=== PATIENT | male | born 1965 | race Caucasian/White ===

== ENCOUNTER → 2018-06-26 09:41 | Outpatient (CLI) | payer BC, SELFPAY ==
[2018-06-26 10:40] LABS: PSA,Total- Diagnostic 6.42 ng/mL (0.0-4.0)
== END ==
PROVIDERS: Referring Provider Nurse Practitioner Adult Health; Visit Provider Nurse Practitioner Adult Health
DX: R97.20 Elevated prostate specific antigen [PSA] (principal)
CPT/HCPCS: 36415; 84153

== ENCOUNTER → 2018-08-06 16:20 | Outpatient (CLI) | payer BC, SELFPAY ==
[2017-06-26 06:27] VITALS: BMI 23.4
--- NOTE | 2018-08-06 08:00 | PROSBIL_PTH ---
PATIENT: YAIMA CLEVELAND LOC: [facility] U#:[id number] AGE/SX: 60/M ROOM: RE08/06/[address]: Dr. Eusebio Coates MD : 1965 BED: DIS: SPEC #: [id number] RECD: 08/07/18 08:40 STATUS: KRISTIN SAMARIA #: [id number] JOSHUA: 08/06/18 08:[address]: Eusebio Coates DEPT: SURGICAL PATHOLOGY RECD BY: Abdirizak Hampton ENTERED: 08/07/18 08:41 SP TYPE: PROST BX CARMEN DR: Dr. Naya Malcolm, DO Tissues: A - PROSTATE RIGHT B - PROSTATE RIGHT C - PROSTATE RIGHT D - PROSTATE LEFT E - PROSTATE LEFT F - PROSTATE LEFT Procedures: PROSTATE BX HEADER OPERATION: Prostate biopsy PRE-OP DIAGNOSIS: Elevated PSA TISSUE SUBMITTED: A - Right apex, B - Right mid, C - Right base, D - Left apex, E - Left mid, F - Left base MICROSCOPIC DIAGNOSIS A. Right prostate, apex, core biopsy: Prostatic tissue, negative for malignancy. B. Right prostate, mid, core biopsy: Prostatic tissue, negative for malignancy. C. Right prostate, base, core biopsy: Prostatic tissue, negative for malignancy. D. Left prostate, apex, core biopsy: Prostatic tissue, negative for malignancy. E. Left prostate, mid, core biopsy: Prostatic tissue, negative for malignancy. Focal mild chronic inflammation and minimal acute inflammation. F. Left prostate, base, core biopsy: Prostatic tissue, negative for malignancy. Focal mild chronic inflammation and minimal acute inflammation. SJ:urvashi 08/08/18 MICROSCOPIC DESCRIPTION Slides are reviewed. GROSS DESCRIPTION A - Received is one container designated prostate, right apex. The specimen consists of two elongated fragments of light madrid-white soft tissue measuring 1 and 1.5 cm in length and 0.1 cm in diameter. The specimen is totally submitted in one cassette. B - Received is one container designated prostate, right mid. The specimen consists of two elongated fragments of light madrid-white soft tissue measuring 1 and 1.5 cm in length and 0.1 cm in diameter. The specimen is totally submitted in one cassette. C - Received is one container designated prostate, right base. The specimen consists of two elongated fragments of light madrid-white soft tissue each measuring 1.5 cm in length and 0.1 cm in diameter. The specimen is totally submitted in one cassette. D - Received is one container designated prostate, left apex. The specimen consists of two elongated fragments of light madrid-white soft tissue measuring 1 and 1.5 cm in length and 0.1 cm in diameter. The specimen is totally submitted in one cassette. E - Received is one container designated prostate, left mid. The specimen consists of two elongated fragments of light madrid-white soft tissue measuring 1 and 1.5 cm in length and 0.1 cm in diameter. The specimen is totally submitted in one cassette. F - Received is one container designated prostate, left base. The specimen consists of two elongated fragments of light madrid-white soft tissue each measuring 1.5 cm in length and 0.1 cm in diameter. The specimen is totally submitted in one cassette. / SJ:rg 08/07/18 TC:3 CPT: 42073 x6
== END ==
PROVIDERS: Referring Provider Urology; Visit Provider Urology
DX: R97.20 Elevated prostate specific antigen [PSA] (principal)
CPT/HCPCS: 88305; G0416

== ENCOUNTER → 2020-05-26 | Outpatient (CLI) | payer BC, SELFPAY ==
[2017-06-26 06:27] VITALS: BMI 23.4
[2020-05-26 10:43] LABS: ALB/GLOB Ratio 1.1 RATIO (0.9-2.4); AST(SGOT) 25 U/L (15-37); Alanine Aminotransfer ALT/SGPT 30 U/L (16-61); Albumin, Serum 3.9 g/dL (3.2-5.0); Alkaline Phosphatase 94 U/L (45-117); Anion Gap 7 (5-15); BUN 14 mg/dL (7-18); Calcium,Total 8.9 mg/dL (8.5-10.1); Chloride 106 mmol/L (98-107); Cholesterol 218 mg/dL (200); Creatinine, Serum 1.08 mg/dL (0.70-1.30); EST Glomerular Filtration Rate 75 mL/min (>60); Est Glom Filt Rate - Afr Amer 91 mL/min (>60); Globulin 3.4 g/dL (2.2-4.2); Glucose 107 mg/dL (74-106); High Density Lipoprotein 57 mg/dL; Potassium 3.8 mmol/L (3.5-5.1); Protein, Total 7.3 g/dL (6.4-8.2); Sodium Level 141 mmol/L (136-145); Triglycerides 132 mg/dL; Very Low Density Lipoprotein 26 mg/dL (5-40)
[2020-05-26 10:58] LABS: Hematocrit 46.2 % (40-54); Hemoglobin 15.6 g/dL (13.0-16.5); Mean Corp Hgb Conc 33.8 g/dL (32-36); Mean Corpuscular Hgb 29.6 pg (27.0-32.0); Mean Corpuscular Volume 87.7 fL (80-94); Mean Platelet Vol. 11.6 fl (6.2-12.0); Platelet Count 266 K/mm3 (150-450); RBC Distribution Width CV 12.3 % (11.6-14.6); RBC Distribution Width SD 39.3 fl (35.1-43.9); Red Blood Count 5.27 M/mm3 (4.6-6.2); White Blood Count 5.9 K/mm3 (4.4-11.0)
== END | disposition home or self-care (01) ==
LOC: LABSPEC 10:15
PROVIDERS: Referring Provider Nurse Practitioner Family; Visit Provider Nurse Practitioner Family
DX: Z13.0 Encounter for screening for diseases of the blood and blood-forming organs and certain disorders involving the immune mechanism (principal); Z12.5 Encounter for screening for malignant neoplasm of prostate; Z13.6 Encounter for screening for cardiovascular disorders; Z13.1 Encounter for screening for diabetes mellitus
CPT/HCPCS: 80053; 80061; 84153; 85027; G0103

== ENCOUNTER → 2020-06-22 | Outpatient (CLI) | payer BC, SELFPAY ==
[2017-06-26 06:27] VITALS: BMI 23.4
== END | disposition home or self-care (01) ==
LOC: LAB 16:14
PROVIDERS: PCP Nurse Practitioner Family; Referring Provider Urology; Visit Provider Urology
DX: R97.20 Elevated prostate specific antigen [PSA] (principal)
CPT/HCPCS: 36415; 84153

== ENCOUNTER → 2020-06-29 | Outpatient (CLI) | payer BC, SELFPAY ==
--- NOTE | 2020-06-29 16:10 | MRI_ITS ---
STUDY: MR PELVIS WITH AND WITHOUT CONTRAST (PROSTATE) REASON FOR EXAM: Male, 55 years old. Elevated PSA TECHNIQUE: Standardized multiparametric prostate MRI with T1, T2, DWI/ADC sequences were obtained in 3 orthogonal planes, and dynamic contrast enhancement sequences. 15 mL ml of dotarem contrast material was administered intravenously for the contrast portion of the examination. COMPARISON: None. FINDINGS: The prostate volume measures 81 mm3. The contours of the prostate gland are smooth. There is not mass effect on the bladder base. The transition zone is heterogenous. PI-RADS DWI score 1 - No abnormality (normal) on ADC or high b-value DWI. PI-RADS T2W score 2 - A mostly encapsulated nodule OR a homogeneous circumscribed nodule without encapsulation (atypical nodule) or a homogeneous mildly hypointense area between nodules.. Contrast enhancement no early or contemporaneous enhancement; or diffuse multifocal enhancement NOT corresponding to a focal finding on T2W and/or DWI or focal nhancement responding to a lesion demonstrating features of BPH onT2WI (including features of extruded BPH in the PZ). The peripheral zone is homogenous. PI-RADS DWI score 1 - No abnormality (normal) on ADC or high b-value DWI. PI-RADS T2W score 2 - Linear, wedge-shaped, or diffuse mild hypointensity, usually with indistinct margin. Contrast enhancement no early or contemporaneous enhancement; or diffuse multifocal enhancement NOT corresponding to a focal finding on T2W and/or DWI or focal nhancement responding to a lesion demonstrating features of BPH onT2WI (including features of extruded BPH in the PZ). The seminal vesicles demonstrate normal margins and T2 signal pattern. No mass lesion or invasion depicted. The rectoprostatic angles are normal. Urinary bladder is normal without wall thickening. The vascular structures of the are normal. The visualized hollow viscus structures are normal. No bone marrow edema or mass lesion depicted. MRI/Pelvis W/WO Contrast IMPRESSION: 1. PIRADS v2.1 2019 -- 2 - Low (clinically significant cancer is unlikely). Electronically Signed: Marcel (Macedo) Glen, MD at 11:24 EDT , Service support ,
== END | disposition home or self-care (01) ==
LOC: MRI 16:04
PROVIDERS: PCP Nurse Practitioner Family; Referring Provider Urology; Visit Provider Urology
DX: R97.20 Elevated prostate specific antigen [PSA] (principal); Z80.42 Family history of malignant neoplasm of prostate
CPT/HCPCS: 72197; A9575

== ENCOUNTER → 2020-12-12 09:13 | Outpatient (CLI) | payer OTHER, SELFPAY ==
[2017-06-26 06:27] VITALS: BMI 23.4
== END ==
PROVIDERS: PCP Nurse Practitioner Family; Referring Provider Urology; Visit Provider Urology
DX: R97.20 Elevated prostate specific antigen [PSA] (principal)
CPT/HCPCS: 36415; 84153

== ENCOUNTER → 2021-01-14 | Outpatient (CLI) | payer OTHER, SELFPAY ==
--- NOTE | 2021-01-14 | IMM_PTH ---
PATIENT: YAIMA CLEVELAND LOC: [facility] U#:[id number] AGE/SX: 55/M ROOM: RE01/14/[address]: Dr. Eusebio Coates MD : 1965 BED: DIS: 01/14/2021 SPEC #: [id number] RECD: 01/15/21 14:03 STATUS: KRISTIN REQ #: [id number] JOSHUA: 01/14/21 00:[address]: Eusebio Coates DEPT: IMMUNOHISTOCHEMISTRY RECD BY: Ping Santamaria ENTERED: 01/15/21 14:04 SP TYPE: IMMUNO OTHR DR: Alexa Jones, PULP SCREEN OPERATOR-C Tissues: A - PROSTATE RIGHT Procedures: CD31 (add) CK8 (add) KI-67 (add) P53 (add) PSA (add) Vimentin (add) FACTOR VIII (add) Pankeratin (initial) PHYSICIAN & INSTITUTION [place] [id number] SPECIMEN INFORMATION: Tissue Source: A - Right prostate, apex, core biopsy Clinical Info: Elevated PSA Specimen Number: [id number] CPT code: 84211, 51602 x7 METHODOLOGY: Deparaffinized sections of prefer/formalin-fixed tissue or PAP/DQ stained slides are incubated with monoclonal/polyclonal antibodies/oligonucleotide probes. Localization is made via biotin free immunoperoxidase method. Appropriate controls are performed and reacted as expected. Results on target cell population are indicated in the following table: RESULTS: ANTIBODY / CLONE RESULT Block A AE1-3 (AE1/AE3/PCK26) negative CK8 (21cjboN96) negative PSA (ER-PR8) negative Vimentin (V9) positive P53 (DO-7) negative Ki-67 (30-9) positive, low CD31 (TAYLOR/70A) negative Factor VIII (R Ag) negative These tests were developed and their performance characteristics determined by [facility]. They may not have been cleared or approved by the U.S. Food and Drug Administration. The FDA has determined that such clearance or approval is not necessary. The above immunohistochemical/dualISH markers are ordered and reviewed by the Pathologist. INTERPRETATION: A. Right prostate, apex, core biopsy: Negative for malignancy. Acute and chronic inflammation and granulation tissue reaction. SJ:urvashi 01/15/2021
--- NOTE | 2021-01-14 08:00 | PROSBIL_PTH ---
PATIENT: YAIMA CLEVELAND LOC: [facility] U#:[id number] AGE/SX: 55/M ROOM: RE01/14/[address]: Dr. Eusebio Coates MD : 1965 BED: DIS: 01/14/2021 SPEC #: [id number] RECD: 01/14/21 11:29 STATUS: KRISTIN REQ #: [id number] JOSHUA: 01/14/21 08:[address]: Eusebio Coates DEPT: SURGICAL PATHOLOGY RECD BY: Yadira Queen ENTERED: 01/14/21 11:29 SP TYPE: PROST BX CARMEN DR: Alexa Jones, STACI-Mansi Tissues: A - PROSTATE RIGHT B - PROSTATE RIGHT C - PROSTATE RIGHT D - PROSTATE LEFT E - PROSTATE LEFT F - PROSTATE LEFT Procedures: PROSTATE BX HEADER OPERATION: Prostate biopsy PRE-OP DIAGNOSIS: R97.20 TISSUE SUBMITTED: A - Right apex, B - Right mid, C - Right base, D - Left apex, E - Left mid, F - Left base MICROSCOPIC DIAGNOSIS A. Right prostate, apex, core biopsy: Prostatic tissue, negative for malignancy. Focal acute and chronic inflammation and granulation tissue reaction. See comment. B. Right prostate, mid, core biopsy: Prostatic tissue, negative for malignancy. Focal mild chronic inflammation. C. Right prostate, base, core biopsy: Prostatic tissue, negative for malignancy. Focal mild chronic inflammation. D. Left prostate, apex, core biopsy: Prostatic tissue, negative for malignancy. E. Left prostate, mid, core biopsy: Prostatic tissue, negative for malignancy. F. Left prostate, base, core biopsy: Prostatic tissue, negative for malignancy. SJ:urvashi 01/15/2021 COMMENT A. Immunohistochemistry ([id number]) supports the above diagnosis. Please make reference to previous specimen ([id number]) right prostate, apex, mid and base and left prostate, apex, mid and base core biopsies with diagnosis of ?prostatic tissue, negative for malignancy.? MICROSCOPIC DESCRIPTION Slides are reviewed. GROSS DESCRIPTION A - Received is one container designated prostate, right apex. The specimen consists of two elongated fragments of light madrid-white soft tissue measuring 1 and 1.8 cm in length and 0.1 cm in diameter. The specimen is totally submitted in one cassette. B - Received is one container designated prostate, right mid. The specimen consists of two elongated fragments of light madrid-white soft tissue each measuring 1.5 cm in length and 0.1 cm in diameter. The specimen is totally submitted in one cassette. C - Received is one container designated prostate, right base. The specimen consists of two elongated fragments of light madrid-white soft tissue each measuring 1.5 cm in length and 0.1 cm in diameter. The specimen is totally submitted in one cassette. D - Received is one container designated prostate, left apex. The specimen consists of two elongated fragments of light madrid-white soft tissue each measuring 1.5 cm in length and 0.1 cm in diameter. The specimen is totally submitted in one cassette. E - Received is one container designated prostate, left mid. The specimen consists of two elongated fragments of light madrid-white soft tissue measuring 1 and 1.5 cm in length and 0.1 cm in diameter. The specimen is totally submitted in one cassette. F - Received is one container designated prostate, left base. The specimen consists of two elongated fragments of light madrid-white soft tissue measuring 1.3 and 2 cm in length and 0.1 cm in diameter. The specimen is totally submitted in one cassette. / SJ:rg 01/14/21 TC:5 CPT: 75733 x6
== END | disposition home or self-care (01) ==
LOC: LABSPEC 11:07
PROVIDERS: PCP Nurse Practitioner Family; Referring Provider Urology; Visit Provider Urology
DX: R97.20 Elevated prostate specific antigen [PSA] (principal)
CPT/HCPCS: 88305; 88341; 88342; G0416

== ENCOUNTER 2021-11-19 15:56 | Outpatient (CLI) | payer BC, SELFPAY | END 2021-11-19 23:59 | disposition home or self-care (01) | LOC: LAB 15:58 | PROVIDERS: PCP Nurse Practitioner Family; Referring Provider Urology; Visit Provider Urology | DX: R97.20 Elevated prostate specific antigen [PSA] (principal) | CPT/HCPCS: 36415; 84153 ==

== ENCOUNTER 2023-08-31 23:57 | Emergency (ER) | payer BC, SELFPAY ==
[2023-08-31 23:58] VITALS: PULSE 101; RESP 18; TEMP 36.2; O2SAT 94; BMI 28.0
[2023-09-01 00:01] VITALS: BP 197/102
--- NOTE | 2023-09-01 02:00 | EX.ED.GUMALE ---
HPI History of Present Illness Chief Complaint: Complaint Narrative Narrative: 58-year-old male with history of prostate issues presents with inability to urinate. He states this started this evening. About 630 is when he stopped and able to void. He has a history of this in the past. He states he had this a few years ago and [facility]. Patient used to be seen by urology here at [facility] but now sees somebody from the [facility] He is on Flomax. [facility] History Anxiety Depression Enlarged prostate HTN (hypertension) Home Medications lisinopril 5 mg tablet (Zestril) 5 mg PO DAILY 01/18/17 [History Last Taken 06/26/17 05:00] escitalopram oxalate 20 mg tablet 20 mg PO DAILY 09/01/23 [History Last Taken Unknown] tamsulosin 0.4 mg capsule 0.4 mg PO Q24H 09/01/23 [History Last Taken Unknown] Allergy/AdvReac Type Severity Reaction Status Date / Time codeine AdvReac Nausea Verified 08/31/23 23:57 Social History Smoking Status: Current every day smoker tobacco type: smokeless tobacco ROS ROS ED Constitutional Constitutional ED: Denies chills, fever(s) or sweats Eyes Eyes: Denies blurry vision or change in vision ENT ENT ED: Denies ear pain or sore throat Cardiovascular Cardiovascular: Denies chest pain, palpitations or racing heartbeat Respiratory/Chest Respiratory/Chest: Denies cough, dyspnea or sputum Gastrointestinal Gastrointestinal: Reports abdominal pain; Denies constipation, diarrhea, nausea or vomiting Genitourinary Genitourinary ED: Denies dysuria, hematuria or urinary frequency Musculoskeletal Musculoskeletal: Denies arthralgias, myalgias or neck pain Integumentary Denies abscess, Abrasions or rash Neurologic Neurologic: Denies headache(s), paresthesias or weakness Psychiatric Psychiatric: Denies anxiety, depression, suicidal ideation or suicidal thoughts Endocrine Endocrinology: Denies polydipsia or polyuria EXAM Physical Exam Const Vital Signs: 08/31/23 23:58 09/01/23 00:01 Temperature 97.2 F L Temperature Source Temporal Pulse Rate 101 H Respiratory Rate 18 Blood Pressure 197/102 H Blood Pressure Mean 133 Pulse Ox 94 Positive well nourished General Appearance ED: NAD; Negative for pallor HEENT Reports moist mucous membranes normocephalic and atraumatic Eyes PERRL and EOMs intact bilaterally Resp normal respiratory effort and clear to auscultation bilaterally Cardio regular rate and regular rhythm GI GI Narrative: Suprapubic pressure no CVA tenderness Extremity normal to inspection Neuro oriented x3 and CN's II-XII intact bilaterally Sensorium / Orientation: alert Motor Exam: strength 5/5 throughout Psych mental status grossly normal Skin General Skin Exam: Negative for jaundice or pallor MDM MDM MDM Narrative Medical decision making narrative: Patient presenting with urinary tension. Centeno catheter was placed. Patient on 1000 cc of urine come out. Patient feels improved. Urinalysis will be ordered. Patient given instruction on leg bag. UA negative for infection. There is some occult blood. This is likely from putting in the Centeno catheter. Patient feels better. Discharged home with leg bag. Follow-up with urology at [facility] Impression: 1. Acute urinary retention Lab Data Attestation: I reviewed the patient's lab results. Labs: Laboratory Results - last 24 hr 09/01/23 02:05 Urine Color Yellow Urine Clarity Clear Urine pH 6.0 Ur Specific [place] 1.015 Urine Protein 100 H Urine Glucose (UA) Normal Urine Ketones 15 H Urine Occult Blood 250 H Urine Nitrite Negative Urine Bilirubin Negative Urine Urobilinogen 1 H Ur Leukocyte Esterase 25 H Urine RBC > 100 SEEN Urine WBC 0-5 SEEN Ur Squamous Epith Cells 0-5 SEEN Urine Bacteria 0 SEEN Urine Mucus 0 SEEN Discharge Plan Triage Chief Complaint: Complaint ED Provider: Riky Navarro Dx/Rx/DC Orders Instructions: ED Centeno Catheter, Care, ED Urinary Retention, Male Prescriptions: No Action lisinopril [Zestril] 5 MG tablet 5 mg PO DAILY escitalopram oxalate 20 mg tablet 20 mg PO DAILY Patient Comments: TAKE 1 TABLET BY MOUTHCONCE DAILY tamsulosin 0.4 mg capsule 0.4 mg PO Q24H Patient Comments: Take 1 capsule by mouthMonce daily. Primary Care Provider: Alexa Jones NP Referrals: Alexa Jones NP, AMBULATORY CARE NURSE-C [Primary Care Provider] - Disposition Disposition: Home, Self Care
[2023-09-01 02:24] LABS: Bacteria 0 SEEN /hpf (None Seen); Mucous, Urine 0 SEEN /hpf (<or=2+)
[2023-09-01 02:27] LABS: Color, Urine Yellow (Yellow); Glucose, Dipstick Normal (Normal); Ketone-Dipstick 15 mg/dl (Negative); Leukocyte Esterase-Dipstick 25 /ul (Negative); Nitrite-Dipstick Negative (Negative); Occult Blood-Urine 250 /ul (Negative); Protein-Dipstick 100 mg/dl (Negative); Specific Gravity, Urine 1.015 (1.002-1.030); Urine Bilirubin Dipstick Negative (Negative); Urine Clarity Clear (Clear); Urine Urobilinogen 1 mg/dl (Normal)
--- OUTSIDE RECORDS SUMMARY | 2023-09-01 02:32 | XMS RPT_ITS | CCD ---
Author Name Unknown Address [address] [place] [address] Organization [facility] Care Team Providers Care Multiple Wire Sawyer Name Role Phone Sabrina WHITE, Rudy Lanza Unavailable [phone] Miguel Angel VELÁSQUEZ, Kenna Jha Unavailable [phone] No, Physician Primary Care Provider Unavailabl JUAN MANUEL Bush Attending Unavailable NO, PHYSICIAN Primary Care Unavailable STORM SALES MANAGER [employer]UFACTURING ENGINEER, BARD Primary Care Physician Storm PEREZ, [place] Primary Care Provider Eusebio Coates Unavailable LORBOUCHRA SALES MANAGER [employer]UFACTURING ENGINEER, BARD Primary Care Physician Storm PEREZ, [place] Primary Care Provider Eusebio Coates Unavailable Storm PEREZ, [place] Primary Care Provider Eusebio Coates MD Unavailable Eusebio Coates MD Unavailable [phone] STORM ALEXA Primary Care Unavailable WEIGHT, CHRISTOPHER Referring Unavailable LORSON, BARD Primary Care Unavailable WEIGHT, CHRISTOPHER Referring Unavailable LORSON, BARD Primary Care Unavailable WEIGHT, CHRISTOPHER Attending Unavailable LORSON, BARD Primary Care Unavailable WEIGHT, CHRISTOPHER Referring Unavailable LORSON, BARD Primary Care Unavailable NIKIA MOREAU Attending Unavailable WEIGHT, CHRISTOPHER Referring Unavailable Allergies Allergy Classification Reported Allergen(s) Allergy Type Date of Onset Reaction(s) Facility Opioid Agonists (2 sources) Codeine; Translations: [CODEINE] Drug Allergy 1 Other (See Comments) [facility] (2 sources) codeine Drug Allergy 7 nausea/vomiting [facility] Work Phone: (15 sources) Codeine; Translations: [codeine] Drug Allergy 4 Vomiting [facility] Medications Current Medications Medication Drug Class(es) Dates Sig (Normalized) Sig (Original) busPIRone hydrochloride 10 mg oral tablet (11 sources) Start: 05-12-2021 End: 08-05-2022 busPIRone (BUSPAR) 10 mg tablet Take 10 mg by mouth. 0 05/12/2021 08/05/2022 Active Completed/Discontinued Medications Medication Drug Class(es) Dates Sig (Normalized) Sig (Original) albuterol 0.83 mg/ml inhalation solution (2 sources) beta2-Adrenergic Agonist Start: 09-14-2021 End: 10-14-2021 take 1 dose by inhalation every six hours as needed albuterol 2.5 mg/3 mL (0.083%) inhalation solution Dose : 2.5 mg = 3 mL, Inhalation, q6h, PRN as needed for wheezing, # 50 EA, 0 Refill(s), Dosing Weight Start Date: 09/14/21 Stop Date: 10/14/21 Status: Ordered Problems Active Problems Problem Classification Problem Date Documented Date Episodic/Chronic Anxiety disorders (4 sources) Anxiety; Translations: [Generalized anxiety disorder] 05-15-2019 Chronic Disorders of lipid metabolism (2 sources) Mixed hyperlipidemia 05-15-2019 Chronic Essential hypertension (2 sources) Essential hypertension 06-03-2020 Chronic Genitourinary symptoms and ill-defined conditions (1 source) Retention of urine; Translations: [Retention of urine, unspecified] Episodic Hyperplasia of prostate (3 sources) Benign prostatic hyperplasia; Translations: [Benign prostatic hyperplasia without lower urinary tract symptoms] Chronic Malaise and fatigue (1 source) Fatigue 01-12-2022 Episodic Other male genital disorders (2 sources) Impotence 05-15-2019 Chronic Other screening for suspected conditions (not mental disorders or infectious disease) (20 sources) Raised prostate specific antigen; Translations: [Elevated prostate specific antigen [PSA]] Onset: 02-28-2014 05-15-2019 Episodic Residual codes; unclassified (2 sources) Sleep apnea 05-15-2019 Chronic Residual codes; unclassified (1 source) Past history of procedure; Translations: [Other specified postprocedural states] Episodic Residual codes; unclassified (2 sources) Chews tobacco 12-31-2020 Episodic Unclassified (3 sources) Patient encounter status 05-06-2021 Past or Other Problems Problem Classification Problem Date Documented Da te Episodic/Chronic Other and unspecified benign neoplasm (4 sources) Polyp of colon; Translations: [History of polyp of colon] Onset: 06-06-2017 07-04-2017 Episodic Other and unspecified benign neoplasm (1 source) History of polyp of colon; Translations: [Personal history of colonic polyps] Onset: 06-06-2017 06-06-2017 Episodic Results Test Name Value Interpretation Reference Range Facil ity Vital Signs Date Time Vital Sign Value Performing Clinician Brandon martinez 12-14-2021 08:25-0400 Body weight 83.6 kg Christopher Weight M D Work Phone: [facility] 12-14-2021 08:25-0400 Diastolic blood pressure 82 mm[Hg] Jarocho Fan MD Work Phone: [facility] 12-14-2021 08:25-0400 Heart rate 56 /min Christopher Weight M D Work Phone: [facility] 12-14-2021 08:25-0400 Systolic blood pressure 142 mm[Hg] Jarocho Fan MD Work Phone: [facility] 01-16-2021 22:48-0400 Diastolic blood pressure 79 mm[Hg] Juan Manuel Jacobs MD Work Phone: [facility] 01-16-2021 22:48-0400 Heart rate 77 /min Juan Manuel Jacobs MD Work Phone: [facility] 01-16-2021 22:48-0400 Respiratory rate 16 /min Juan Manuel Jacobs MD Work Phone: [facility] 01-16-2021 22:48-0400 SaO2% (BldA) [Mass fraction] 96 % Juan Manuel Jacobs MD Work Phone: [facility] 01-16-2021 22:48-0400 Systolic blood pressure 132 mm[Hg] Juan Manuel Jacobs MD Work Phone: [facility] 01-16-2021 20:38-0400 Body height 175.3 cm Juan Manuel Jacobs MD Work Phone: [facility] 01-16-2021 20:38-0400 Body mass index (BMI) [Ratio] 25.28 kg/m2 Juan Manuel Jacobs MD Work Phone: [facility] 01-16-2021 20:38-0400 Body temperature 98.4 [degF] Juan Manuel Jacobs MD Work Phone: [facility] 01-16-2021 20:38-0400 Body weight 77.66 kg Juan Manuel Jacobs MD Work Phone: [facility] Encounters Encounter Date Encounter Type Care Provider Facility Start: 05-16-2023 End: 05-17-2023 ambulatory [facility] Facility:[facility] Start: 04-25-2023 End: 04-25-2023 [facility] Facility:[facility] Start: 04-25-2023 End: 04-25-2023 ambulatory Jarocho Fan MD Work Phone: Urology Procedures Date Procedure Procedure Detail Performing Clinician Start: 04-07-2022 Urnls dip stick/tabl et reagent auto microscopy Bulk Order Provider Start: 03-17-2022 transrct prstate vol brachytx plnning spx Jarocho Fan MD Work Phone: Start: 03-17-2022 Urnls dip stick/tabl et rgnt auto w/o microscopy Jarocho Fan MD Work Phone: Start: 12-14-2021 Urnls dip stick/tabl et rgnt auto w/o microscopy Bulk Order Provider Start: 07-12-2021 [facility] Calvin Fan MD Work Phone: Start: 01-16-2021 Urnls dip stick/tabl et reagent auto microscopy Randal Barker PA-C Work Phone: Start: 01-16-2021 Basic metabolic pane l calcium total Randal Barker PA-C Work Phone: Start: 01-16-2021 ORTIZ TOP Juan Manuel Jacobs MD Work Phone: Start: 01-16-2021 LIGHT BLUE TOP Juan Manuel Jacobs MD Work Phone: Start: 01-16-2021 LIGHT GREEN TOP Juan Manuel Jacobs MD Work Phone: Start: 01-16-2021 PINK TOP Juan Manuel Jacobs MD Work Phone: Start: 01-16-2021 RAINBOW DRAW Juan Manuel Jacobs MD Work Phone: Start: 01-25-2017 Inguinal hernia (disorder) ALEXA INMAN SALES MANAGER [employer]URING ENGINEER Plan of Treatment Date Care Activity Detail Author Start: 07-12-2031 Colonoscopy COLONOSCOPY [facility] Start: 07-12-2031 COLORECTAL CANCER SCREENING COLORECTAL CANCER SCREENING [facility] Start: 05-16-2028 Prostate Cancer Screening Discussion Prostate Cancer Screening Discussion [facility] Start: 01-24-2028 PROSTATE CANCER SCREENING DISCUSSION PROSTATE CANCER SCREENING DISCUSSION [facility] Start: 10-07-2027 PROSTATE CANCER SCREENING DISCUSSION PROSTATE CANCER SCREENING DISCUSSION [facility] Start: 05-05-2023 Influenza vaccination [facility] Start: 2023 End: 04-09-2023 Prostate specific Ag [Mass/volume] in Serum or Plasma PSA/PROSTSPECAG DIAG Lab Routine Elevated prostate specific antigen (PSA) Expected: 2023, Expires: 04/09/2023 [facility] Work Phone: Immunizations Immunization Date Immunization Notes Care Provider Fa [facility] 05-05-2017 influenza virus vaccine, unspecified formulation ALEXA INMAN SALES MANAGER [employer]UFACTURING ENGINEER [facility] 06-04-2016 influenza virus vaccine, unspecified formulation ALEXA INMAN SALES MANAGER [employer]UFACTURING ENGINEER [facility] 05-05-2015 influenza virus vaccine, unspecified formulation ALEXA INMAN SALES MANAGER [employer]UFA[employer]URING ENGINEER [facility] Payers Date Payer Category Payer Unknown RAYMOND SEQUEIRA SS PPO [id number] 2021-Present [phone] [address] [place] [address] PPO [id number] 2021 Unknown RAYMOND RIOS ACCE SS PPO [id number] 2021-Present [phone] [address] [place] [address] PPO [id number] 2021 Unknown [id number] 2020 Unknown [id number] 1965 Unknown [id number] Unknown [facility] [id number] Effective for all dates [id number] Social History Date Type Detail Facility Start: 01-16-2021 End: 06-29-2021 Tobacco smoking status NHIS Never smoker [facility] Start: 01-16-2021 End: 06-29-2021 Tobacco use and exposure Current user [facility] History of tobacco use Chews Tobacco [facility] Start: 01-16-2021 End: 07-12-2021 Alcohol intake Current drinker of alcohol (finding) [facility] Start: 01-16-2021 Alcohol Comment occasionally [facility] Start: 1965 Sex Assigned At Not on file [facility] Start: 12-04-2021 End: 04-07-2022 Exposure to SARS-CoV-2 (event) Not sure [facility] Start: 06-03-2020 Smokeless tobacco user within last 30 days [facility] Sex Assigned At Male [facility] History of tobacco use Snuff User [facility] Start: 06-29-2021 History SDOH Alcohol Comment 8-10 weekly [facility] Start: 07-12-2021 End: 01-23-2023 History of Social function [facility] Start: 07-12-2021 End: 01-23-2023 Area Deprivation Index [facility] Clinical Notes 01-16-2021 to 04-25-2023 Jarocho Fan MD - 04/25/2023 2:30 PM EDTTelephone Encounter - Lili Best - 04/07/2023 8:35 AM EDTTelephone Encounter - Kaelyn Bell RN - 01/12/2023 7:28 AM EDT Note Date & Type Note Facility 04-25-2023 Note HNO ID: [id number] Author: Jarocho Fan MD Service: ? Author Type: Physician Type: Progress Notes Filed: 05/17/2023 1:44 PM Note Text: VIRTUAL VISIT FOLLOW UP PATIENT: Nancy Beltran [id number] 04/25/2023 This is a virtual visit using IBTgames video visit. It required patient-provider interaction for the medical decision making as documented below. I have communicated my name and active licensure. The patient's identity and physical location were verified at the time of this visit. Either the patient or their legal new accounts representative has been informed of the risks and benefits of -- and alternatives to -- treatment through a remote evaluation and consents to proceed with the evaluation remotely. This clinic note was copied and updated from previous note from 01/31/23 Chief Complaint: Follow up for elevated PSA History of Present Illness: Nancy Beltran is a very pleasant 58 year old male who presents with a history of elevated PSA. He has undergone 3 prior biopsies, all of which were negative most recent biopsy 03/17/2022. Most recent MRI prostate with PI-RADS 2 lesion and 93cc prostate gland on 01/25/2022. PSA 17.95 PSA 10/07/2022 15.24 Interval Hx: The patient is presenting for follow up. Did not get updated PSA. Denies new or worsening urinary symptoms. Physical Exam (via video enabled technology) Patient is a 58 year old male Constitutional: Vitals: There were no vitals taken for this visit. General Appearance Adult: Alert, no acute distress, oriented Lungs/Repiratory: no respiratory distress, or pursed lip breathing Psych: affect and mood normal Abdomen: Estimated body mass index is 26.44 kg/m? as calculated from the following: Height as of 01/06/17: 177.8 cm (5' 10 ). Weight as of 12/14/21: 83.6 kg (184 lb 4.8 oz). Labs and Pathology: Surgical Pathology 03/17/2022 FINAL DIAGNOSIS A. Prostate, left anterior medial, core biopsy: - Benign prostatic tissue. B. Prostate, left anterior lateral, core biopsy: - Benign prostatic tissue. C. Prostate, left posterior medial, core biopsy: - Benign prostatic tissue. D. Prostate, left posterior lateral, core biopsy: - Benign prostatic tissue. E. Prostate, right anterior medial, core biopsy: - Benign prostatic tissue. F. Prostate, right anterior lateral, core biopsy: - Benign prostatic tissue. G. Prostate, right posterior medial, core biopsy: - Benign prostatic tissue. H. Prostate, right posterior lateral, core biopsy: - Benign prostatic tissue. I personally reviewed all applicable laboratory and pathology data reviewed with patient Significant for elevated PSA PSA (ng/mL) Date Value 05/16/2023 14.32 01/23/2023 17.95 10/07/2022 15.24 Imaging: MRI prostate 01/25/2022 IMPRESSION: No suspicious lesion for clinically significant prostate cancer (PI-RADS I personally viewed all applicable imaging and interpreted them and went over the results with the patient. Assessment and Plan: 1.This is a 58 year old male with elevated PSA with elevated IsoPSA. Has had 3 negative biopsies. Most recent PSA 15.24 down from 19 in January. Has not gotten an updated PSA. Plan: Will get PSA soon, if stable follow up in 6 months with PSA This visit was conducted as a video visit and lasted 15 minutes. Nikia Moreau APRN.ADVANCED MANUFACTURING ENGINEER I agree with the Chief Complaint, ROS, and Past Histories independently gathered by the clinical support engineer including scribe and or medical student and or LEONARDO and or resident or fellow and the remaining scribed note accurately describes my personal service to the patient. Jarocho Fan MD, MS [facility] [place] [facility] 04-25-2023 History of Presen t illness Narrative VIRTUAL VISIT FOLLOW UP PATIENT: Nancy Beltran [id number] 04/25/2023 This is a virtual visit using IBTgames video visit. It required patient-provider interaction for the medical decision making as documented below. I have communicated my name and active licensure. The patient's identity and physical location were verified at the time of this visit. Either the patient or their legal new accounts representative has been informed of the risks and benefits of -- and alternatives to -- treatment through a remote evaluation and consents to proceed with the evaluation remotely. This clinic note was copied and updated from previous note from 01/31/23 Chief Complaint: Follow up for elevated PSA History of Present Illness: Nancy Beltran is a very pleasant 58 year old male who presents with a history of elevated PSA. He has undergone 3 prior biopsies, all of which were negative most recent biopsy 03/17/2022. Most recent MRI prostate with PI-RADS 2 lesion and 93cc prostate gland on 01/25/2022. PSA 17.95 PSA 10/07/2022 15.24 Interval Hx: The patient is presenting for follow up. Did not get updated PSA. Denies new or worsening urinary symptoms. Physical Exam (via video enabled technology) Patient is a 58 year old male Constitutional: Vitals: There were no vitals taken for this visit. General Appearance Adult: Alert, no acute distress, oriented Lungs/Repiratory: no respiratory distress, or pursed lip breathing Psych: affect and mood normal Abdomen: Estimated body mass index is 26.44 kg/m as calculated from the following: Height as of 01/06/17: 177.8 cm (5' 10 ). Weight as of 12/14/21: 83.6 kg (184 lb 4.8 oz). Labs and Pathology: Surgical Pathology 03/17/2022 FINAL DIAGNOSIS A. Prostate, left anterior medial, core biopsy: - Benign prostatic tissue. B. Prostate, left anterior lateral, core biopsy: - Benign prostatic tissue. C. Prostate, left posterior medial, core biopsy: - Benign prostatic tissue. D. Prostate, left posterior lateral, core biopsy: - Benign prostatic tissue. E. Prostate, right anterior medial, core biopsy: - Benign prostatic tissue. F. Prostate, right anterior lateral, core biopsy: - Benign prostatic tissue. G. Prostate, right posterior medial, core biopsy: - Benign prostatic tissue. H. Prostate, right posterior lateral, core biopsy: - Benign prostatic tissue. I personally reviewed all applicable laboratory and pathology data reviewed with patient Significant for elevated PSA PSA (ng/mL) Date Value 05/16/2023 14.32 01/23/2023 17.95 10/07/2022 15.24 Imaging: MRI prostate 01/25/2022 IMPRESSION: No suspicious lesion for clinically significant prostate cancer (PI-RADS I personally viewed all applicable imaging and interpreted them and went over the results with the patient. Assessment and Plan: 1.This is a 58 year old male with elevated PSA with elevated IsoPSA. Has had 3 negative biopsies. Most recent PSA 15.24 down from 19 in January. Has not gotten an updated PSA. Plan: Will get PSA soon, if stable follow up in 6 months with PSA This visit was conducted as a video visit and lasted 15 minutes. Nikia Moreau APRN.ADVANCED MANUFACTURING ENGINEER I agree with the Chief Complaint, ROS, and Past Histories independently gathered by the clinical support engineer including scribe and or medical student and or LEONARDO and or resident or fellow and the remaining scribed note accurately describes my personal service to the patient. Jarocho Fan MD, MS [facility] [place] [facility] documented in this encounter [facility] 04-07-2023 Miscellaneous Notes Requested Prescriptions Pending Prescriptions Disp Refills tamsulosin (FLOMAX) 0.4 mg Sig: Take by mouth once daily. documented in this encounter [facility] 01-12-2023 Miscellaneous Notes Received a request from [facility] for Nancy's last colonoscopy to be faxed to their office. Faxed 2020 colonoscopy. Fax confirmation sheet received. Kaelyn Bell RN documented in this encounter [facility] 10-31-2022 Note HNO ID: [id number] Author: Nikia Moreau APRN.ADVANCED MANUFACTURING ENGINEER Service: ? Author Type: Nurse Practitioner Type: Progress Notes Filed: 11/07/2022 9:10 AM Note Text: VIRTUAL VISIT PROGRESS NOTE This is a virtual visit using [employer] video visit. It required patient-provider interaction for the medical decision making as documented below. [facility] ESTABLISHED PATIENT OFFICE VISIT REASON FOR VISIT: Follow up HPI 57 year old male presenting for follow-up of elevated PSA. He has undergone 3 biopsies all of which were negative Father had prostate cancer IsoPSA 11.9 and PSA 19.030 12/17/2021 Interval history: Patient presenting for follow up with PSA. Most recent PSA 15.24. PATHOLOGY: Surgical Pathology 03/17/2022 FINAL DIAGNOSIS A. Prostate, left anterior medial, core biopsy: - Benign prostatic tissue. B. Prostate, left anterior lateral, core biopsy: - Benign prostatic tissue. C. Prostate, left posterior medial, core biopsy: - Benign prostatic tissue. D. Prostate, left posterior lateral, core biopsy: - Benign prostatic tissue. E. Prostate, right anterior medial, core biopsy: - Benign prostatic tissue. F. Prostate, right anterior lateral, core biopsy: - Benign prostatic tissue. G. Prostate, right posterior medial, core biopsy: - Benign prostatic tissue. H. Prostate, right posterior lateral, core biopsy: - Benign prostatic tissue. LABS: No results found for: CREAT PSA (ng/mL) Date Value 10/07/2022 15.24 (H) URINALYSIS: Specific [place], Ur Date Value Ref Range Status 04/07/2022 1.025 1.005 - 1.030 Final Glucose, Urine Date Value Ref Range Status 04/07/2022 Trace (A) Negative Final Bilirubin, Urine Date Value Ref Range Status 04/07/2022 Negative Negative Final Ketones, Urine Date Value Ref Range Status 04/07/2022 Negative Negative Final Hemoglobin/Blood,Ur Date Value Ref Range Status 04/07/2022 Trace (A) Negative Final Protein, Urine Date Value Ref Range Status 04/07/2022 Negative Negative Final Nitrites Date Value Ref Range Status 04/07/2022 Negative Negative Final WBC, Urine Date Value Ref Range Status 04/07/2022 0-5 /HPF 0-5 /HPF Final IMAGING: MRI prostate 01/25/2022 IMPRESSION: No suspicious lesion for clinically significant prostate cancer (PI-RADS 2). No prerna/osseous metastases. ALLERGIES: ALLERGIES Allergen Reactions Codeine Vomiting MEDICATIONS: Current Outpatient Medications Medication Sig fish oil/borage/flax/om3,6,9 1 (FISH,BORA,FLAX OILS-OM3,6,9NO1 ORAL) Take 1,000 mg by mouth. escitalopram oxalate (LEXAPRO) 20 mg tablet Take 20 mg by mouth once daily. tamsulosin HCl (FLOMAX ORAL) Take by mouth once daily. lisinopril (ZESTRIL, PRINIVIL) 5 mg tablet triamcinolone acetonide (NASACORT) 55 mcg nasal inhaler Use 2 Sprays in the nose once daily. No current facility-administered medications for this visit. HISTORIES PAST MEDICAL HISTORY Diagnosis Date Anxiety state BPH (benign prostatic hyperplasia) Environmental allergies Essential hypertension Kidney stone PAST SURGICAL HISTORY Procedure Laterality Date COLONOSCOP W/ OR W/O [facility] SPEC 07/12/2021 COLONOSCOPY 03/24/2014 polyp, repeat in 3 years FRACTURE SURGERY HERNIA REPAIR HX Left 01/25/2017 lap LIH PAST SURGICAL HISTORY OF Right 01/2016 Rt hand surgery RHINOPLASTY 1997 VASECTOMY Social History Tobacco Use Smoking status: Never Smokeless tobacco: Current Types: Snuff Substance Use Topics Alcohol use: Yes Comment: 8-10 weekly Drug use: Never PHYSICAL EXAMINATION There were no vitals taken for this visit. General: Well appearing, alert, in no acute distress, and well-hydrated, well nourished ASSESSMENT: 57 year old male presenting for follow up of elevated PSA with elevated IsoPSA. Has had 3 negative biopsies. Most recent PSA 15.24 down from 19 in January. PLAN: Follow up in 3 months with PSA This visit was conducted as a video visit and lasted 10 minutes Nikia Moreau APRN.ADVANCED MANUFACTURING ENGINEER [facility] 10-31-2022 History of Presen t illness Narrative VIRTUAL VISIT PROGRESS NOTE This is a virtual visit using IBTgames video visit. It required patient-provider interaction for the medical decision making as documented below. [facility] ESTABLISHED PATIENT OFFICE VISIT REASON FOR VISIT: Follow up HPI 57 year old male presenting for follow-up of elevated PSA. He has undergone 3 biopsies all of which were negative Father had prostate cancer IsoPSA 11.9 and PSA 19.030 12/17/2021 Interval history: Patient presenting for follow up with PSA. Most recent PSA 15.24. PATHOLOGY: Surgical Pathology 03/17/2022 FINAL DIAGNOSIS A. Prostate, left anterior medial, core biopsy: - Benign prostatic tissue. B. Prostate, left anterior lateral, core biopsy: - Benign prostatic tissue. C. Prostate, left posterior medial, core biopsy: - Benign prostatic tissue. D. Prostate, left posterior lateral, core biopsy: - Benign prostatic tissue. E. Prostate, right anterior medial, core biopsy: - Benign prostatic tissue. F. Prostate, right anterior lateral, core biopsy: - Benign prostatic tissue. G. Prostate, right posterior medial, core biopsy: - Benign prostatic tissue. H. Prostate, right posterior lateral, core biopsy: - Benign prostatic tissue. LABS: No results found for: CREAT PSA (ng/mL) Date Value 10/07/2022 15.24 (H) URINALYSIS: Specific [place], Ur Date Value Ref Range Status 04/07/2022 1.025 1.005 - 1.030 Final Glucose, Urine Date Value Ref Range Status 04/07/2022 Trace (A) Negative Final Bilirubin, Urine Date Value Ref Range Status 04/07/2022 Negative Negative Final Ketones, Urine Date Value Ref Range Status 04/07/2022 Negative Negative Final Hemoglobin/Blood,Ur Date Value Ref Range Status 04/07/2022 Trace (A) Negative Final Protein, Urine Date Value Ref Range Status 04/07/2022 Negative Negative Final Nitrites Date Value Ref Range Status 04/07/2022 Negative Negative Final WBC, Urine Date Value Ref Range Status 04/07/2022 0-5 /HPF 0-5 /HPF Final IMAGING: MRI prostate 01/25/2022 IMPRESSION: No suspicious lesion for clinically significant prostate cancer (PI-RADS 2). No prerna/osseous metastases. ALLERGIES: ALLERGIES Allergen Reactions Codeine Vomiting MEDICATIONS: Current Outpatient Medications Medication Sig fish oil/borage/flax/om3,6,9 1 (FISH,BORA,FLAX OILS-OM3,6,9NO1 ORAL) Take 1,000 mg by mouth. escitalopram oxalate (LEXAPRO) 20 mg tablet Take 20 mg by mouth once daily. tamsulosin HCl (FLOMAX ORAL) Take by mouth once daily. lisinopril (ZESTRIL, PRINIVIL) 5 mg tablet triamcinolone acetonide (NASACORT) 55 mcg nasal inhaler Use 2 Sprays in the nose once daily. No current facility-administered medications for this visit. HISTORIES PAST MEDICAL HISTORY Diagnosis Date Anxiety state BPH (benign prostatic hyperplasia) Environmental allergies Essential hypertension Kidney stone PAST SURGICAL HISTORY Procedure Laterality Date COLONOSCOP W/ OR W/O BRSH SPEC 07/12/2021 COLONOSCOPY 03/24/2014 polyp, repeat in 3 years FRACTURE SURGERY HERNIA REPAIR HX Left 01/25/2017 lap LIH PAST SURGICAL HISTORY OF Right 01/2016 Rt hand surgery RHINOPLASTY 1997 VASECTOMY Social History Tobacco Use Smoking status: Never Smokeless tobacco: Current Types: Snuff Substance Use Topics Alcohol use: Yes Comment: 8-10 weekly Drug use: Never PHYSICAL EXAMINATION There were no vitals taken for this visit. General: Well appearing, alert, in no acute distress, and well-hydrated, well nourished ASSESSMENT: 57 year old male presenting for follow up of elevated PSA with elevated IsoPSA. Has had 3 negative biopsies. Most recent PSA 15.24 down from 19 in January. PLAN: Follow up in 3 months with PSA This visit was conducted as a video visit and lasted 10 minutes Nikia Moreau APRN.CHRIS documented in this encounter [facility] 04-07-2022 History of Presen t illness Narrative Images from the original note were not included. PATIENT: Nancy Beltran [id number] 04/07/2022 Clinic note from 01/25/2022 copied and updated. Chief Complaint: Elevated PSA follow up History of Present Illness: Nancy Beltran is a very pleasant 57 year old male who presents with a history of elevated PSA. He has undergone 2 prior biopsies, both of which were negative. He also had an MRI somewhat recently which demonstrated what is reported as just a PIRADS 2. Most recent PSA was within the past couple of months and it was 20. Outside PSAs: 06/12/18 6.70 06/26/18 6.42 Outside pathology: 08/06/18 ConfirmMDx was performed on this tissue and was negative for DNA methylation, indicating a low likelihood of detecting prostate cancer on repeat biopsy. Father had prostate cancer in the 1970s. Interval Hx: Pathology from 03/17/2022 shows benign prostatic tissue. Physical Exam: Patient is a 57 year old male Constitutional: Vitals: There were no vitals taken for this visit. General Appearance Adult: Alert, no acute distress, oriented Mouth: throat/mouth:normal as far as I can tell behind the mask Lungs/Repiratory: no respiratory distress, or pursed lip breathing Heart: No obvious jugular venous distension present, normal heart rate Abdomen: soft, nontender, no organomegaly or masses, Estimated body mass index is 26.44 kg/m as calculated from the following: Height as of 01/06/17: 177.8 cm (5' 10 ). Weight as of 12/14/21: 83.6 kg (184 lb 4.8 oz). Musculoskeltal: extremities normal, no peripheral edema Skin: no noted suspicious lesions or rashes Neuro: Alert, oriented, speech and mentation normal Psych: affect and mood normal Gait: Normal without assistance : Deferred Labs and Pathology: 03/17/2022 Pathology FINAL DIAGNOSIS A. Prostate, left anterior medial, core biopsy: - Benign prostatic tissue. B. Prostate, left anterior lateral, core biopsy: - Benign prostatic tissue. C. Prostate, left posterior medial, core biopsy: - Benign prostatic tissue. D. Prostate, left posterior lateral, core biopsy: - Benign prostatic tissue. E. Prostate, right anterior medial, core biopsy: - Benign prostatic tissue. F. Prostate, right anterior lateral, core biopsy: - Benign prostatic tissue. G. Prostate, right posterior medial, core biopsy: - Benign prostatic tissue. H. Prostate, right posterior lateral, core biopsy: - Benign prostatic tissue. Outside PSAs: 06/12/18 6.70 06/26/18 6.42 Lab Results Component Value Date ISOPSA 11.9 (H) 12/14/2021 TPSA 19.030 (H) 12/14/2021 Outside pathology: 08/06/18 Imagin01/25/2022 MRI prostate 93 cc. No suspicious lesion for clinically significant prostate cancer. No prerna/osseous metastases. Assessment: 57 year old with urinary frequency and urgency and elevated PSA status post two prior negative biopsies, negative Confirm MDx, and MRI (negative). IsoPSA 11.9, tPSA at that time was 19. Most recent biopsy on 03/17/2022 negative. Plan: Follow up in 6 months with PSA with Nikia Moreau If PSA keeps rising needs another biopsy and MRI PSA density if 0.23 so high Nikia Moreau, MAVIS.ADVANCED MANUFACTURING ENGINEER Scribed for Dr. Jarocho Fan by Reynaldo Gaona, medical lab specialist, on April 07, 2022. I agree with the Chief Complaint, ROS, and Past Histories independently gathered by the clinical support engineer including scribe and or medical student and or LEONARDO and or resident or fellow and the remaining scribed note accurately describes my personal service to the patient. still has risk of cs prostate cancer but no sign on recent biopsy, MRI, or Confirm diagnosis, however, still risky with PSA, ISOPSA and PSA density Jarocho Fan MD, MS [facility] Former[facility], [facility] [place] [facility] documented in this encounter [facility] 03-17-2022 History of Presen t illness Narrative UNIVERSAL PROTOCOL / SAFETY CHECKLIST Procedure to be Performed: TP Bx Sign In: A Moment of CARE was completed. Personnel directly involved with the procedure wore the appropriate PPE (Personal Protective Equipment). No special equipment needed. Patient/Surrogate Stated/Verified: PATIENT VERIFIED(optional for EMERGENT procedures): Patient name, Date of , Relevant allergies and The intended procedure Time Out Communication: Intended patient and procedure match the source documents. Consent documented and matches the intended procedure. Relevant labs, photos, and/or imaging studies have been reviewed. No correct side/site applicable for marking and visibility. No medications required for procedure. Fire risk assessed and interventions discussed. No implant(s) inserted. Sign Out: SIGN OUT (optional for EMERGENT procedures): All specimen containers correctly labeled. All instruments, equipment, possible retained foreign bodies accounted for. Post-procedure follow-up management communicated and Plan of Care Visit completed when applicable. Elisha Braxton RN Guided US for Transperineal Prostate Biopsy Report Name: Nancy Beltran MR#: [id number] Date: March 17, 2022 DIAGNOSIS: ISOPSA <6.1 11.9 High TPSA 0-<4 19.030 High Elevated PSA: TRANSRECTAL ULTRASOUND: ? Prostate Volume: 93 cc. ? PSA density: 0.20 ng/cc ? Documentation images were taken. Yes Surgeon(s)/Proceduralist(s) and Drapery Hand(s): Surgeon(s) and Role: * Jarocho Fan MD - Primary Procedure(s): Systematic Transperineal Random Prostate Biopsy, Trans Rectal Ultrasound Anesthesia: Local Lidocaine Preoperative Diagnosis: Suspicion for prostate cancer Postoperative Diagnoses: Suspicion for prostate cancer Findings: Good random samples removed Procedure Narrative: After informed consent was obtained, the patient was taken to the procedure room. A time out was performed where the patient and the procedure were identified in the presence of the Nursing and Surgical Staff. The patient was placed in the dorsal lithotomy position and prepped and draped in routine fashion. Due to the complex morphology of prostate cancer, a systematic biopsy of suspected prostate cancers was required. The skin was infiltrated with lidocaine. Two 14 gauge angiocatheters were placed and the prostate was identified using ultrasound and measured. Trans-rectal ultrasound with a guide was used to precisely biopsy the prostate. Multiple tissue cores were taken transperineally after administering approximately 20-40 cc of local anesthetic subcutaneously and in the periprostatic space. Number of Biopsy Cores Taken: see path Accidental Punctures or Lacerations: None Estimated Blood Loss: Minimal Specimens: Prostate Biopsies Implanted Devices: None Drains: None Complications: None The primary surgeon/proceduralist performed the procedure Follow up in one week to discuss pathology results. Scribed for Dr. Jarocho Fan by Reynaldo Gaona medical lab specialist, on March 17, 2022 I agree with the Chief Complaint, ROS, and Past Histories independently gathered by the clinical support engineer including scribe and or medical student and or LEONARDO and or resident or fellow and the remaining scribed note accurately describes my personal service to the patient. Jarocho Fan MD, MS [facility] Former[facility], [facility] [place] [facility] documented in this encounter [facility] 07-14-2022 Nurse Note Actual procedure/procedure scheduled: Yes Performing provider/scheduled provider: Yes Patient was roomed in: Q9- 15 Patient arrived in the room at: 0750 Patient ready for procedure: 0805 The procedure started at ( Time Only): 0810 The procedure ended at: 0830 Was the procedure delayed: No The patient left the procedure room at: 0850 Elisha Braxton RN PRE PROCEDURE ASSESSMENT- TP Bx Procedure/Indication: TP Bx with local Latex Allergy: No Allergies reviewed and updated Yes Pre-Procedure Vital Signs: BP: 141/84 Pulse: 62 Heart Valve replacement: No Joint replacement: No Do you currently have an infection: No Anticoagulant: No Back Office UA obtained: yes Eaten prior to procedure: Yes PROCEDURE PREP- TRUS BX Patient ID with two(2)identifiers verified by: Elisha Braxton RN Pre-Procedure Antibiotics: None taken at home nor prior to procedure Anesthetic given: Administered by MD - see Procedure Physician Note. UNIVERSAL PROTOCOL / SAFETY CHECKLIST Procedure to be performed: TP Bx Sign in Communication: Completed Time Out: Team Confirms the Correct Patient, Correct Procedure, Correct Site and Site Marking, Correct Position (if applicable) Sign Out Discussion: Completed Elisha Braxton RN POST PROCEDURE NURSE ASSESSMENT Present along with physician during procedure exam. Elisha Braxton RN Instruction sheet given and reviewed and patient verbalizes understanding: yes Post-Procedure Vital Signs: BP: 84/60 Pulse: 60 Lightheaded and dizzy, cool cloth, water, and placed in trendelenburg 0838 106/68 HR 44-46 0843 124/73 HR 44 0845 Sitting upright, HR 56 BP 117/76 Current pain intensity is 0 on a 0-10 pain scale. Post-Procedure Medications: As Prescribed Elisha Braxton RN PATIENT EDUCATION THE FOLLOWING WAS EVALUATED Motivation To Learn: Eager Family/Significant Other Support: High - Very involved in pt care Cognitive Ability: Alert/Oriented Patient Learns Best By: Individual instruction Written instruction - handouts Verbal instruction The Following Influencing Factors Were Barriers To This Education Session: None The Following Physical Limitations Were Barriers To This Education Session: None Instruction Provided To:Patient Vocational Trainer Present: not applicable Discipline: Nursing Learning Topic: Survival Skills: Complication Prevention Patient Evaluation: Verbalizes understanding: Yes Supplemental Material Given: Written Material Instructed By Elisha Braxton RN In Department Urology . documented in this encounter [facility] 03-16-2022 Miscellaneous Notes Open in error documented in this encounter [facility] 01-25-2022 History of Presen t illness Narrative Images from the original note were not included. PATIENT: Nancy Beltran [id number] 01/25/2022 Chief Complaint: Elevated PSA History of Present Illness: Nancy Beltran is a very pleasant 56 year old male who presents with a history of elevated PSA. He has undergone 2 prior biopsies, both of which were negative. He also had an MRI somewhat recently which demonstrated what is reported as just a PIRADS 2. Most recent PSA was within the past couple of months and it was 20. Outside PSAs: 06/12/18 6.70 06/26/18 6.42 Outside pathology: 08/06/18 ConfirmMDx was performed on this tissue and was negative for DNA methylation, indicating a low likelihood of detecting prostate cancer on repeat biopsy. Father had prostate cancer in the 1970s. Urinary frequency and urgency. IPSS 13, QoL 2-3 SYEDA 22 Physical Exam: There were no vitals taken for this visit. General: Alert, no acute distress, oriented Lungs: No respiratory distress or pursed lip breathing Psych: Affect and mood normal Abdomen: Estimated body mass index is 26.44 kg/m as calculated from the following: Height as of 01/06/17: 177.8 cm (5' 10 ). Weight as of 12/14/21: 83.6 kg (184 lb 4.8 oz). Labs and Pathology: Outside PSAs: 06/12/18 6.70 06/26/18 6.42 Lab Results Component Value Date ISOPSA 11.9 (H) 12/14/2021 TPSA 19.030 (H) 12/14/2021 Outside pathology: 08/06/18 Imagin01/25/2022 MRI prostate 93 cc. No suspicious lesion for clinically significant prostate cancer. No prerna/osseous metastases. Assessment: 56 year old with urinary frequency and urgency and elevated PSA status post two prior negative biopsies, negative Confirm MDx, and MRI (negative). IsoPSA 11.9, tPSA at that time was 19. Plan: Discussed PSA, ISOPSA, and image results with patient. PSA and ISOPSA numbers are concerning so we decided to move with a biopsy. There might be a probability of a missed tumor Patient will get a transperineal biopsy with nitrous gas Scribed for Dr. Jarocho aFn by Reynaldo Gaona, medical lab specialist, on January 25, 2022 I agree with the Chief Complaint, ROS, and Past Histories independently gathered by the clinical support engineer including scribe and or medical student and or LEONARDO and or resident or fellow and the remaining scribed note accurately describes my personal service to the patient. Jarocho Fan MD, MS [facility], [facility] [place] [facility] documented in this encounter [facility] 12-14-2021 History of Presen t illness Narrative Images from the original note were not included. PATIENT: Nancy Beltran [id number] REFERRING MD: Eusebio Coates 12/13/2021 Chief Complaint Elevated PSA Referral Consultation requested by Dr. Coates for an opinion regarding elevated PSA. My final recommendations will be communicated back to the requesting physician by way of shared Medical record or letter to requesting physician via US mail. History of Present Illness Nancy Beltran is a very pleasant 56 year old male who presents with a history of elevated PSA. He has undergone 2 prior biopsies, both of which were negative. He also had an MRI somewhat recently which demonstrated what is reported as just a PIRADS 2. Most recent PSA was within the past couple of months and it was 20. Outside PSAs: 06/12/18 6.70 06/26/18 6.42 Outside pathology: 08/06/18 ConfirmMDx was performed on this tissue and was negative for DNA methylation, indicating a low likelihood of detecting prostate cancer on repeat biopsy. Father had prostate cancer in the 1970s. Urinary frequency and urgency. IPSS 13, QoL 2-3 SYEDA 22 Past Histories PAST MEDICAL HISTORY Diagnosis Date Anxiety state BPH (benign prostatic hyperplasia) Environmental allergies Essential hypertension Kidney stone PAST SURGICAL HISTORY Procedure Laterality Date COLONOSCOP W/ OR W/O BRSH SPEC 07/12/2021 COLONOSCOPY 03/24/2014 polyp, repeat in 3 years FRACTURE SURGERY HERNIA REPAIR HX Left 01/25/2017 lap LIH PAST SURGICAL HISTORY OF Right 01/2016 Rt hand surgery RHINOPLASTY 1996 VASECTOMY Medications Current Outpatient Medications Medication Instructions busPIRone (BUSPAR) 5 mg, ORAL, DAILY escitalopram oxalate (LEXAPRO) 20 mg, ORAL, DAILY fexofenadine ([place]) 180 mg, ORAL, DAILY lisinopril (ZESTRIL, PRINIVIL) 5 mg tablet No dose, route, or frequency recorded. tamsulosin HCl (FLOMAX ORAL) ORAL, DAILY triamcinolone acetonide (NASACORT) 55 mcg nasal inhaler 2 Sprays, DAILY Family History FAMILY HISTORY Problem Relation Age of Onset Prostate Cancer Father Social History Social History Tobacco Use Smoking status: Never Smoker Smokeless tobacco: Current User Types: Snuff Substance Use Topics Alcohol use: Yes Comment: 8-10 weekly Drug use: Never Allergies Allergies: Codeine Vomiting Review of Systems GENERAL: No weight loss, malaise or fevers RESPIRATORY: Negative for cough, hemoptysis, wheezing, COPD, dyspnea or shortness of breath CARDIOVASCULAR: Negative for chest pain, leg swelling, hypertension, CHF or palpitations : See HPI Physical Exam There were no vitals taken for this visit. General: Alert, no acute distress, oriented Lungs: No respiratory distress or pursed lip breathing Psych: Affect and mood normal Abdomen: Estimated body mass index is 26.11 kg/m as calculated from the following: Height as of 01/06/17: 177.8 cm (5' 10 ). Weight as of 06/29/21: 82.6 kg (182 lb). Labs and Pathology Outside PSAs: 06/12/18 6.70 06/26/18 6.42 Outside pathology: 08/06/18 Imaging: MRI prostate done per patient, no records available for our review. Assessment: 56 M with urinary frequency and urgency and elevated PSA status post two prior negative biopsies, negative Confirm MDx, and MRI which per patient did not have any PIRADS >3 lesions. Plan: Obtain additional outside records and MRI for our review. If MRI low risk, would favor prostatitis/CPPS and proceed with referral/PFPT Ivan Brito MD Fellow in Urologic Oncology I have personally seen and examined the patient. I have reviewed the hospitality house supervisor's documentation and verified the findings in the note as written. Get outside records would recommend ISO PSA MRI prostate since it has been more than 2 years Follow up after tests. Jarocho Fan MD, MS [facility] Staff [facility], [facility] [place] [facility] documented in this encounter [facility] documented as of this encounter (statuses as of 12/14/2021) [facility]11-08-2021 History of Past illness Narrative* Problem Noted Date Resolved Date Personal history of colonic polyps 07/12/2021 07/12/2021 documented as of this encounter (statuses as of 12/17/2021) [address]08-2021 History of Past illness Narrative* Problem Noted Date Resolved Date Personal history of colonic polyps 07/12/2021 07/12/2021 documented as of this encounter (statuses as of 02/09/2022) [facility] History of Past illness Narrative* Problem Noted Date Resolved Date Personal history of colonic polyps 07/12/2021 07/12/2021 documented as of this encounter (statuses as of 03/16/2022) [facility] History of Past illness Narrative* Problem Noted Date Resolved Date Personal history of colonic polyps 07/12/2021 07/12/2021 documented as of this encounter (statuses as of 03/17/2022) [facility]21 History of Past illness Narrative* Problem Noted Date Resolved Date Personal history of colonic polyps 07/12/2021 07/12/2021 documented as of this encounter (statuses as of 03/22/2022) [address]-2021 History of Past illness Narrative* Problem Noted Date Resolved Date Personal history of colonic polyps 07/12/2021 07/12/2021 documented as of this encounter (statuses as of 04/11/2022) [facility] History of Past illness Narrative* Problem Noted Date Resolved Date Personal history of colonic polyps 07/12/2021 07/12/2021 documented as of this encounter (statuses as of 04/18/2022) [address]-2021 History of Past illness Narrative* Problem Noted Date Resolved Date Personal history of colonic polyps 07/12/2021 07/12/2021 documented as of this encounter (statuses as of 11/07/2022) [facility] History of Past illness Narrative* Problem Noted Date Resolved Date Personal history of colonic polyps 07/12/2021 07/12/2021 documented as of this encounter (statuses as of 01/12/2023) [facility] History of Past illness Narrative* Problem Noted Date Diagnosed Date Resolved Date Personal history of colonic polyps 07/12/2021 07/12/2021 documented as of this encounter (statuses as of 04/07/2023) [facility] History of Past illness Narrative* Problem Noted Date Diagnosed Date Resolved Date Personal history of colonic polyps 07/12/2021 07/12/2021 documented as of this encounter (statuses as of 05/17/2023) [facility]05-15-2021 Miscellaneous Notes* ED Attestation Note - Juan Manuel Jacobs MD - 01/16/2021 10:53 PM EDT ED Attestation I personally interviewed the patient. I personally examined the patient. I discussed the patient with the ELECTRIC TOOL REPAIRER/PA. I agree with the ELECTRIC TOOL REPAIRER/PA treatment. I agree with the ELECTRIC TOOL REPAIRER/PA plan of care. I agree with the ELECTRIC TOOL REPAIRER/PA disposition as documented. Recent prostate biopsy, sense of feeling of incopmlete bladder emptying and urgency. PVR is < 300, no indications for saez at this curent time. May be bladder spasms vs mild obstruction. UA without pyuria. Trial pyridium. * ED Update Note - Randal Barker PA-C - 01/16/2021 8:51 PM EDT PROSTATE BX IN MAXIMUS THIS , FEELS LIKE RETAINING URINE, HAS SMALL URINE TODAY AROUND NOONTHEN SOME DRIBBLING 2-3 X AFTER THAT, NO VOMITING, NO FLANK PAIN. DOESN'T SEE HIS UROLOGIST UNTIL 2WEEKS . documented in this [id number] Emergency department Note* Cassie Bradshaw PA-C - 01/16/2021 10:27 PM EDT Emergency Department Note PCP - Physician No Chief complaint Chief Complaint Patient presents with Urinary Retention History of Present Illness This is a 55-year-old gentleman who presents to the emergency department with difficulty urinating.Patient had a prostate biopsy on in [facility] where he resides. He is actually here visiting family in [place]. Patient states that he has had trouble urinating in the morning with some dribbling. States that he is never had it this severe. Patient states that he did have about 5 beersbetween noon and 6 PM. Patient does have a history of an enlarged prostate. He did finish a course of antibiotics last night. Patient does complain of some pain over his bladder. When I entered the room patient is watching something on his cell phone there is urine in the urinal and states he does feel better. He did have a bladder scan which showed 285 after he urinated. Review of Systems Constitutional: No unexplained weight change Skin: No easy bruising Respiratory: No stridor Eyes: No discharge HENT: No drooling Genitourinary: +urinary retention, +bladder pain. Endocrine: No polyphagia Neurologic: No facial asymmetry Hematologic/Lymphatic: No abnormal nodules Allergic/Immunologic: No urticaria Psychiatry: No self harm Family History No family history on file. Social History Social History Socioeconomic History Marital status: Spouse name: Not on file Number of children: Not on file Years of education: Not on file Highest education level: Not on file Occupational History Not on file Social Needs Financial resource strain: Not on file Food insecurity Worry: Not on file Inability: Not on file Transportation needs Medical: Not on file Non-medical: Not on file Tobacco Use Smoking status: Never Smoker Smokeless tobacco: Current User Types: Chew Substance and Sexual Activity Alcohol use: Yes Comment: occasionally Drug use: Not Currently Sexual activity: Not on file Lifestyle Physical activity Days per week: Not on file Minutes per session: Not on file Stress: Not on file Relationships Social connections Talks on phone: Not on file Gets together: Not on file Attends sabianism service: Not on file Active member of club or organization: Not on file Attends meetings of clubs or organizations: Not on file Relationship status: Not on file Other Topics Concern Not on file Social History Narrative Not on file Allergies Allergies Allergen Reactions Codeine Other (See Comments) wack out and get sick Medications Nancy Beltran Home Medication Instructions Prior to Surgery FARRUKH:[id number] Printed on:01/16/21 [id number] Medication Information Take last dose on Take the morning of surgery Comment(s) phenazopyridine (PYRIDIUM) 200 MG tablet Take 1 (one) tablet (200 mg total) by mouth 3 (three) times a day for 2 days . tamsulosin (Flomax) 0.4 mg capsule Take 1 (one) capsule (0.4 mg total) by mouth daily for 20 days . Past Medical History Past Medical History: Diagnosis Date Anxiety Hypertension Past Surgical History Past Surgical History: Procedure Laterality Date ABDOMINAL SURGERY hernia repair NASAL SEPTUM SURGERY PROSTATE BIOPSY Emergency Department Labs (if any) Labs Reviewed URINALYSIS - Abnormal; Notable for the following components: Result Value Ketones, Urine Trace (*) Blood, Urine Moderate (*) RBCs, Urine 11 (*) All other components within normal limits Narrative: Microscopic examination is performed on all urinalysis samples and only positive findings are reported. The test for blood on the chemical analytic portion of urinalysis may also be positive due to hemoglobinuria and myoglobinuria and if red blood cells are present they are quantified by microscopic examination. BASIC METABOLIC PANEL - Normal Narrative: The eGFR should be used for monitoring renal function only and not for medication dosing. URINE AEROBIC CULTURE CBC AND DIFFERENTIAL Narrative: The following orders were created for panel order CBC w/ Diff. Procedure Abnormality Status --------- ------ CBC Auto Differential[[id number]] Final result Please view results for these tests on the individual orders. CBC WITH AUTO DIFFERENTIAL Radiographic Imaging (if any) No orders to display Emergency Department Medications (if any) Medications sodium chloride (PF) (NS) flush 5 mL (has no administration in time range) And sodium chloride 0.9% (NS) (has no administration in time range) Emergency Department Procedures (if any) Procedures Physical Examination BP 131/83 (BP Location: Right arm, Patient Position: Sitting) Pulse 74 Temp 98.4 F (36.9 C) (Oral) Resp 16 Ht 5' 9 Wt 77.7 kg (171 lb 3.2 oz) SpO2 99% BMI 25.28 kg/m Vital Signs During ED Visit (as charted by nursing) Patient Vitals for the past 24 hrs: BP Temp Temp src Pulse Resp SpO2 Height Weight 01/16/212037 131/83 98.4 F (36.9 C) Oral 74 16 99 % 5' 9 77.7 kg (171 lb 3.2 oz) Physical Exam Vitals signs and nursing note reviewed. Constitutional: General: He is not in acute distress. Appearance: Normal appearance. He is not ill-appearing. HENT: Head: Normocephalic. Neck: Musculoskeletal: Normal range of motion. Cardiovascular: Rate and Rhythm: Normal rate and regular rhythm. Pulses: Normal pulses. Heart sounds: Normal heart sounds. Pulmonary: Effort: Pulmonary effort is normal. Abdominal: Tenderness: There is abdominal tenderness (suprapubic). Musculoskeletal: Normal range of motion. Skin: General: Skin is warm and dry. Capillary Refill: Capillary refill takes less than 2 seconds. Neurological: General: No focal deficit present. Mental Status: He is alert and oriented to person, place, and time. Psychiatric: Mood and Affect: Mood normal. Behavior: Behavior normal. Medical Decision Making 55-year-old gentleman who had a prostate biopsy on in [facility]. He did take antibiotics prior to the procedure and took his last dose of antibiotics last night. Patient did have about 5 beers this afternoon and found it difficult to urinate. He is having quite a bit of pain to his bladder and was finding that he was just getting dribbling of urine. Patient was able to give us a urinalysis which showed colorless clear urine with a trace of ketones moderate blood 11 red blood cells no nitrates or leuk esterase. BUN was 14 creatinine was 1.03. CBC was unremarkable. Patient's bladderscan showed 285 he was able to actually urinate shortly after the bladder scan. Patient is feeling much better. We will go ahead and discharge the patient home with some Pyridium encouraged him to drink plenty of fluids avoid alcohol. At this time it does not show that he has a urinary tract infection. He may also benefit from some oxybutynin we will give him a couple tablets for bladder spasms. We will make sure that the patient has Flomax for home. He was discharged home in stable condition recommended he follow-up with his urologist next week. I counseled patient regarding warnings and adverse effects associated with any medications and therapies I have ordered, provided or prescribed today. If opioids were ordered, provided or prescribed, I have discussed the risks and benefits, includingthe risks of addiction and overdose associated with a controlled substance containing an opioid, with patient. . Emergency Department Impression 1. Benign prostatic hyperplasia, unspecified whether lower urinary tract symptoms present 2. History of prostate biopsy 3. Urinary retention Cassie Bradshaw PA-C 01/16/21 * Nydia Huffman RN - 01/16/2021 9:44 PM EDT This RN messaged Augustine HOLLOWAY to advise if we should still place a catheter since he was able to produce some urine. She advised to hold off until the UA comes back * Joanna Lucero RN - 01/16/2021 8:43 PM EDT Pt reports he had a prostate biopsy this past . * Carlee Wood RN - 01/16/2021 8:35 PM EDT Pt arrives to triage with surgical mask in place c/o urinary retention. Pt had prostate biopsy on and today has not urinated more than a few dribbles. Pt denies any other sx. Pt had procedure at [facility]. documented in this [id number] Hospital Discharge instructions * Instructions* Cassie Bradshaw PA-C - 01/16/2021 Avoid alcohol, drink plenty of fluids. Follow up with Urology next week. * Attachments The following attachments cannot be sent through Care Everywhere. * Urinary Retention ([place]) * BPH (Benign Prostatic Hyperplasia) ([place]) [facility] Future Appointments Appointment Date:01/13/2022 04:00:00 PM Scheduled Provider:ALEXA INMAN Location:[facility] Appointment Type:PC OV Follow Up [facility] Evaluation + Plan note Future Appointments Appointment Date:01/11/2023 04:00:00 PM Scheduled Provider:ALEXA INMAN Location:[facility] Appointment Type:PC Wellness Annual [facility]* Diagnosis Benign prostatic hyperplasia, unspecified whether lower urinary tract symptoms present- Primary History of prostate biopsy Urinary retention Unspecified retention of urine documented in this encounter [facility] note* Diagnosis Elevated prostate specific antigen (PSA)- Primary [facility] Diagnosis Screening for genitourinary condition Screening for other and unspecified genitourinary condition [facility] Diagnosis Elevated PSA- Primary Elevated prostate specific antigen (PSA) [facility]* Diagnosis Elevated PSA- Primary Elevated prostate specific antigen (PSA) [facility]* Diagnosis Screening for genitourinary condition Screening for other and unspecified genitourinary condition [facility]* Diagnosis Elevated PSA- Primary Elevated prostate specific antigen (PSA) [facility]* Diagnosis Elevated prostate specific antigen (PSA)- Primary [facility]* Diagnosis Elevated PSA- Primary Elevated prostate specific antigen (PSA) Elevated prostate specific antigen (PSA) [facility] Narrative No data available for this section [facility] Hospital Discharge instructions No data available for this section [facility] Progress note No data available for this section [facility] Reason for referral (narrative)* Outpatient Procedure (Routine) - Pending Review Specialty Diagnoses / Procedures Referred By Anatoliy holm Referred To Contact [facility] Diagnoses Elevated PSA Procedures PROSTATE BIOPSY GUKI PROSTATE NEEDLE BIOPSY ANY APPROACH US, TRANSRECTAL URNLS DIP STICK/TABLET RGNT AUTO W/O MICROSCOPY US GUIDANCE NEEDLE PLACEMENT IMG [place] [id number] [phone] [facility] [address] [address] Referral ID Status Reason Start Date Expiration Date Visits Requested Visits Authorized [id number] Pending Review Auto-Generat ed Referral 01/25/2022 01/25/2023 1 1 [facility] Advance Directives No Advanced Directives Records FoundDocuments on File Type Date Recorded Patient Data Entry Manager Expl anation Advance Directives and Livin g Will 01/16/2021 9:55 PM Documents on File Type Date Recorded Patient Data Entry Manager Expl anation Advance Directive(s) 07/12/2021 10:09 AM Advance Directive(s) 07/05/2021 11:46 AM Documents on File Type Date Recorded Patient Data Entry Manager Expl anation Advance Directive(s) 07/12/2021 10:09 AM Advance Directive(s) 07/05/2021 11:46 AM Summary Purpose Family History No Family History Records FoundNo Family History Records FoundNo Family History Records Found Reason for Referral Specialty Diagnoses / Procedures Referred By Anatoliy holm Referred To Contact [facility] Diagnoses Elevated prostate specific antigen (PSA) Procedures MRI PROSTATE WO/W IVCON MRI PELVIS W/O & W/[place] [address] [place] [address] Mr Imaging Referral ID Status Reason Start Date Expiration Date Visits Requested Visits Authorized [id number] Pending Review Auto-Generat ed Referral 12/14/2021 01/13/2023 1 1 Additional Source Comments Reason for Visit (unrecogniz ed section and content) Reason Comments Elevated PSA Reason Comments Follow Up Reason Comments error Reason Comments Prostate Biopsy Reason Onset Date Comments PreOp Call 03/16/2022 Reason Comments Follow Up Reason Comments Medical Records 2020 colonoscopy rep ort Reason Onset Date Comments Refill Request 04/07/2023 Reason Comments Follow Up Follow up for elevat ed PSA PRN Active and Recently Administ ered Medications (unrecognized section and content) Linked Groups Order Group 1: Insert peripheral IV (CANCELED) HEIDI, Once, On 01/16/21 at 2049, For 1 occurrence And Saline lock IV (CANCELED) HEIDI, Once, On 01/16/21 at 2049, For 1 occurrence And sodium chloride (PF) (NS) flush 5 mLJump to med 5 mL, Intravenous, As needed, line care, Starting on 01/16/21 at 2046 And sodium chloride 0.9% (NS)Jump to med 0-150 mL/hr, Intravenous, As needed, To flush line after IV infusions when no maintenance IV ordered or a compatibility issue. Infuse 20ml at the same rate as the secondary infusion, Starting on 01/16/21 at 2046
Run as Primary IV. NOT intended for KVO.
(unrecognized sect ion and content) No Status Records FoundNo Status Records FoundNo Status Records Found INFORMATION SOURCE (unrecogn ized section and content) DATE CREATED AUTHOR AUTHOR'S ORGANIZ ATION 01/16/2022 [facility] ([place]) DATE CREATED AUTHOR AUTHOR'S ORGANIZ ATION 05/18/2023 [facility] Source Comments (unrecognize d section and content) In the event this informatio n is protected by the Federal Confidentiality of Alcohol and Drug Abuse Patient Records regulations: The Federal rules restrict any use of the information to criminally investigate or prosecute any alcohol or drug abuse patient.[facility] the event this information is protected by the Federal Confidentiality of Alcohol and Drug Abuse Patient Records regulations: The Federal rules restrict any use of the information to criminally investigate or prosecute any alcohol or drug abuse patient.[facility] Center[facility] the event this information is protected by the Federal Confidentiality of Alcohol and Drug Abuse Patient Records regulations: The Federal rules restrict any use of the information to criminally investigate or prosecute any alcohol or drug abuse patient.[facility] Center[facility] the event this information is protected by the Federal Confidentiality of Alcohol and Drug Abuse Patient Records regulations: The Federal rules restrict any use of the information to criminally investigate or prosecute any alcohol or drug abuse patient.[facility] Center[facility] the event this information is protected by the Federal Confidentiality of Alcohol and Drug Abuse Patient Records regulations: The Federal rules restrict any use of the information to criminally investigate or prosecute any alcohol or drug abuse patient.[facility] Center[facility] the event this information is protected by the Federal Confidentiality of Alcohol and Drug Abuse Patient Records regulations: The Federal rules restrict any use of the information to criminally investigate or prosecute any alcohol or drug abuse patient.[facility] CenterIn the event this information is protected by the Federal Confidentiality of Alcohol and Drug Abuse Patient Records regulations: The Federal rules restrict any use of the information to criminally investigate or prosecute any alcohol or drug abuse patient.[facility] CenterIn the event this information is protected by the Federal Confidentiality of Alcohol and Drug Abuse Patient Records regulations: The Federal rules restrict any use of the information to criminally investigate or prosecute any alcohol or drug abuse patient.[facility] CenterIn the event this information is protected by the Federal Confidentiality of Alcohol and Drug Abuse Patient Records regulations: The Federal rules restrict any use of the information to criminally investigate or prosecute any alcohol or drug abuse patient.[facility] CenterIn the event this information is protected by the Federal Confidentiality of Alcohol and Drug Abuse Patient Records regulations: The Federal rules restrict any use of the information to criminally investigate or prosecute any alcohol or drug abuse patient.[facility] CenterIn the event this information is protected by the Federal Confidentiality of Alcohol and Drug Abuse Patient Records regulations: The Federal rules restrict any use of the information to criminally investigate or prosecute any alcohol or drug abuse patient.[facility] CenterIn the event this information is protected by the Federal Confidentiality of Alcohol and Drug Abuse Patient Records regulations: The Federal rules restrict any use of the information to criminally investigate or prosecute any alcohol or drug abuse patient.[facility] Care Teams (unrecognized sec tion and content) Multiple Wire Sawyer Relationship Specialty Start Date End Date Alexa Inman CNP [address] [place] [address] PCP - General Family Practice 07/05/21 Eusebio Coates [address] [place] [address] Referring Urology 11/24/21 Multiple Wire Sawyer Relationship Specialty Start Date End Date Alexa Inman CNP [address] [place] [address] PCP - General Family Practice 07/05/[address] [place] [address], [place] [phone] Referring Urology 11/24/21 Multiple Wire Sawyer Relationship Specialty Start Date End Date Alexa Inman CNP [address] [place] [address] PCP - General Family Practice 07/05/[address] [address] Referring Urology 11/24/21 Multiple Wire Sawyer Relationship Specialty Start Date End Date Alexa Inman CNP [address] [place] [address] PCP - General Family Practice 07/05/[address] [address] Referring Urology 11/24/21 Multiple Wire Sawyer Relationship Specialty Start Date End Date Alexa Inman CNP [address] [place] [address] PCP - General Family Practice 07/05/21 Jaxon, Nate[address] [phone] Referring Urology 11/24/21 Multiple Wire Sawyer Relationship Specialty Start Date End Date Alexa Inman CNP [address] [place], [place] [address] PCP - General Family Medicine 07/05/21 Eusebio Coates MD [address] [phone] Referring Urology 11/24/21 Multiple Wire Sawyer Relationship Specialty Start Date End Date Alexa Inman, CHRIS [address] [place] [address] PCP - General Family Medicine 07/05/21 Eusebio Coates MD [address] [phone] Referring Urology 11/24/21 Multiple Wire Sawyer Relationship Specialty Start Date End Date Alexa Inman CNP [address] [place], [place] [id number] PCP - General Family Medicine 07/05/21 Eusebio Coates MD [address] [place] [phone] Referring Urology 11/24/21 FOR RECORDS PERTAINING TO PATIENTS WHO ARE OR HAVE BEEN ENROLLED IN A CHEMICAL DEPENDENCY/SUBSTANCEABUSE PROGRAM, SOME INFORMATION MAY BE OMITTED. This clinical summary was aggregated from multiple sources. Caution should be exercised in using it in the provision of clinical care. This summary normalizes information from multiple sources, and as a consequence, information in this document may materially change the coding, format and clinical context of patient data. In addition, data may be omitted in some cases. CLINICAL DECISIONS SHOULD BE BASED ON THE PRIMARY CLINICAL RECORDS. [employer] [facility]. provides no warranty or guarantee of the accuracy or completeness of information in this document.
[2023-09-01 02:37] LABS: Red Blood Cells-Urine > 100 SEEN /hpf (0-5); Squamous Epithelial Cells - UA 0-5 SEEN /hpf (0-5); White Blood Cells 0-5 SEEN /hpf (0-5)
[2023-09-01 03:08] VITALS: BP 158/82; PULSE 72; RESP 16; O2SAT 98
[2023-09-01 03:09] VITALS: BP 158/82; PULSE 72; RESP 16; O2SAT 98
== END 2023-09-01 03:14 | disposition home or self-care (01) ==
PROVIDERS: Emergency Provider Student in an Organized Health Care Education/Training Program; PCP Nurse Practitioner Family; Referring Provider Student in an Organized Health Care Education/Training Program; Visit Provider Student in an Organized Health Care Education/Training Program
DX: R33.9 Retention of urine, unspecified (principal); F17.220 Nicotine dependence, chewing tobacco, uncomplicated; I10 Essential (primary) hypertension
CPT/HCPCS: 51702; 81001; 99283

== ENCOUNTER 2023-12-25 16:00 | Outpatient (RCR) | payer BC, SELFPAY ==
--- NOTE | 2023-11-21 08:11 | HP.OTEVAL ---
Patient's Visit Information Visit Information Visit Information: YAIMA CLEVELAND is a 58 year old M, referred to Occupational Therapy by DAVE ALARCON, with a diagnosis of interartic fx of lower end of L radius. Date of Evaluation: 11/21/23 Occupational Therapist: Meryl Ramirez Subjective Subjective: this 58 year old male arrives s/p fx to distal L radius by stepping over push mower and fell onto cement Oct 05. Conservative management with immobilization casting. pt taken out of cast last monNovember 14. pt now in wrist orthosis. pt states dr stated to wear when doing something. Pt is R hand dominant. Pt staring new job which he will be staring on November 26-- questionable depending on healing of wrist. 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 pt wrist fx impacting ability to perform yard work heavy lifting manual tasks. pt main concern with flexibility as well as strength of hand and shoulder tightness. 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 within 6 weeks in order to perform day to day tasks and in prep for work related responsibilities 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 increase L wrist flexion as well as extension by 5-10 degrees within 4 weeks pt will increase L forearm pronation as well as supination by 10-15 degrees within 4 weeks pt will demonstrate the ability to oppose thumb to D5 for improved opposition for I in work related as well as hobby tasks 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 report 2/10 pain or less L wrist during functional tasks in order to maximize I in functional tasks Goal:: Pt will decrease edema of L wrist to 16.5 cm and MCP to 20 cm in order to improve motion for increased functional use in prep for return to work and hobby tasks 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 demonstrate 100% accuracy in carryover of joint protection and positioning with completion of day to day functional tasks as well as during work related and hobby tasks 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 improve qick dash score to 45 or less in order to improve overall quality of life and functional use of L UE Rehabilitation Rehabilitation Potential: Excellent Anticipated Interventions Anticipated Interventions: A/AAROM/PROM, Strengthening, Edema Control, Massage, Modalities, Orthoses, Joint Protection/Energy Conservation, Fine Motor Coord/Tobias, Education re Diagnosis, Education re Self Massage Techniques and Home Program Visit Plan Frequency: 2x /Week Duration: 6 Weeks General Plan: This male pt presents with edema of L wrist and hand, stiffness with decreased ROM in wrist flex/ extension forearm pronation and supination. pt with decreased opposition of thumb to D5. pt reports no pain at rest pain with increased activity during day to day L wrist. Progress pt to AAROM and strengthening once able based off of fx healing. pt reports stiffness and pain in shoulder to work on AROM as well as strengthening of shoulder. TEXT: Thank you for the opportunity to evaluate your patient. For Medicare and Medicare HMO plans, please review the plan of care and approve it. It will need to be FAXED BACK to us at [phone] for Medicare purposes. Please let me know if there are questions or concerns regarding this plan of care. Physician Signature: Date:
--- NOTE | 2023-12-27 17:09 | HP.OTDCSUM_ITS ---
Discharge Summary D/C Summary: It has been my pleasure to treat YAIMA CLEVELAND under orders from DAVE ALARCON, for the diagnosis of interartic fx of lower end of L radius for a total of 8 visit(s). Please see the following information for a summary of their discharge status. 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 limited opposition unable to reach to D5 at this time. 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 strength by 15- 20 pounds within 6 weeks in order to perform day to day tasks and in prep for work related responsibilities goal met 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 increase L wrist flexion as well as extension by 5-10 degrees within 4 weeks goal met pt will increase L forearm pronation as well as supination by 10-15 degrees within 4 weeks goal met pt will demonstrate the ability to oppose thumb to D5 for improved opposition for I in work related as well as hobby tasks ( goal met) 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 report 2/10 pain or less L wrist during functional tasks in order to maximize I in functional tasks ( goal met) Goal:: Pt will decrease edema of L wrist to 16.5 cm and MCP to 20 cm in order to improve motion for increased functional use in prep for return to work and hobby tasks ( goal met) 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 demonstrate 100% accuracy in carryover of joint protection and positioning with completion of day to day functional tasks as well as during work related and hobby tasks (goal met) 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 improve qick dash score to 45 or less in order to improve overall quality of life and functional use of L UE Plan Plan: D/C D/C Information Discharge Comments: pt was seen for 8 OT sessions- pts swelling and pain has decreased and pt has made good strides in ROM and strength-pt will continue with HEP to cont. to improve his strength. Pt agrees with D/C d/c sentence: If there are questions or concerns regarding this patient's occupational therap y, please fell free to call me at [phone]. Thank you for the referral of this patient. Sincerely, Lisa Rubio, OTR/L, CHT
== END 2023-12-25 19:00 | disposition home or self-care (01) ==
LOC: OT 16:00
PROVIDERS: PCP Nurse Practitioner Family
DX: S52.572D Other intraarticular fracture of lower end of left radius, subsequent encounter for closed fracture with routine healing (principal)
CPT/HCPCS: 97110; 97140; 97166; 97530

== ENCOUNTER 2024-02-17 16:06 | Emergency (ER) | payer BC, SELFPAY ==
[2024-02-17 16:06] VITALS: BP 188/100; PULSE 110; RESP 20; TEMP 36.3; O2SAT 98
[2024-02-17 16:29] LABS: Bacteria 0 SEEN /hpf (None Seen); Mucous, Urine 0 SEEN /hpf (<or=2+); Red Blood Cells-Urine 0 SEEN /hpf (0-5); Squamous Epithelial Cells - UA 0 SEEN /hpf (0-5); White Blood Cells 0 SEEN /hpf (0-5)
[2024-02-17 16:31] LABS: Absolute Lymphocyte Count 2.02 X10^3/uL (0.83-4.51); Absolute Neutrophil Count 8.6 X10^3/uL (2.0-7.7); Basophil# 0.06 X10^3/uL; Basophil% 0.5 % (0-1); Eosinophil# 0.11 X10^3/uL; Hematocrit 46.9 % (40-54); Hemoglobin 16.1 g/dL (13.0-16.5); Lymphocyte # 2.02 X10^3/ul (0.83-4.51); Lymphocyte % 17.8 % (19-41); Mean Corp Hgb Conc 34.3 g/dL (32-36); Mean Corpuscular Hgb 28.6 pg (27.0-32.0); Mean Corpuscular Volume 83.5 fL (80-94); Mean Platelet Vol. 11.1 fl (6.2-12.0); Monocyte# 0.56 X10^3/uL; Monocyte% 4.9 % (0-10); NRBC Flagged by Analyzer 0 % (0-5); Neutrophil # 8.59 X10^3/uL (2.7-7.7); Neutrophil % 75.4 % (47-70); Platelet Count 236 K/mm3 (150-450); RBC Distribution Width CV 12.5 % (11.6-14.6); RBC Distribution Width SD 38.3 fl (35.1-43.9); Red Blood Count 5.62 M/mm3 (4.6-6.2); White Blood Count 11.4 K/mm3 (4.4-11.0)
[2024-02-17 16:32] VITALS: BMI 28.0
[2024-02-17 16:32] LABS: Color, Urine Yellow (Yellow); Glucose, Dipstick Normal (Normal); Ketone-Dipstick 5 mg/dl (Negative); Leukocyte Esterase-Dipstick Negative /ul (Negative); Nitrite-Dipstick Negative (Negative); Occult Blood-Urine 10 /ul (Negative); Protein-Dipstick Negative (Negative); Urine Bilirubin Dipstick Negative (Negative); Urine Clarity Clear (Clear); Urine Urobilinogen Normal (Normal)
--- NOTE | 2024-02-17 16:38 | EX.ED.DYSGE1 ---
HPI <AMIE Waller - Last Filed: 02/17/24 17:09> History of Present Illness Chief Complaint: Complaint Narrative Narrative: 59-year-old male with past medical history BPH states he forgot to take his Flomax this morning and has been unable to urinate since 1 PM causing lower abdominal pain and fullness. He states once before he required a Centeno catheter placed for this issue. He has a high PSA and saw Dr. Coates and was also referred to [facility] urologist, Dr. Fan. He has had normal prostate biopsies. He denies fever chills nausea or vomiting. PFSH <AMIE Waller - Last Filed: 02/17/24 17:09> [facility] Medical History Anxiety Depression Enlarged prostate HTN (hypertension) Home Medications ?Medication ?Instructions ?Recorded ?Last Taken ?Type lisinopril 5 mg tablet (Zestril) 5 mg PO DAILY 01/18/17 06/26/17 05:00 History escitalopram oxalate 20 mg tablet 10 mg PO DAILY 09/01/23 Unknown History tamsulosin 0.4 mg capsule 0.4 mg PO Q24H 09/01/23 Unknown History Allergy/AdvReac Type Severity Reaction Status Date / Time codeine AdvReac Nausea Verified 02/17/24 16:26 Social History (Updated 02/17/24 @ 16:26 by Lian Harris) household members: family housing: house Smoking Status: Current every day smoker tobacco type: smokeless tobacco ROS <AMIE Waller - Last Filed: 02/17/24 17:09> ROS ED ROS Narrative Constitutional: Negative for fever, chills, malaise. GI: Positive for abdominal pain. No nausea or vomiting. : Negative for dysuria. EXAM <AMIE Waller Last Filed: 02/17/24 17:09> Physical Exam Narrative Exam Narrative: CONST: Patient sitting in no acute distress. EYES: Normal inspection. NECK: Normal inspection. RESP: No respiratory distress, CTAB. CVS: Regular rate and rhythm, no murmur, no gallop. ABD: Soft and nontender, no guarding or rebound, nondistended. Indwelling Centeno catheter has 900 cc clear yellow urine. SKIN: Color normal, no rash, warm, dry, intact. EXTREMITIES: Normal appearance, no pedal edema. NEURO: Alert and answering questions appropriately. PSYCH: Normal affect. Const Vital Signs: 02/17/24 16:06 02/17/24 17:04 02/17/24 17:31 Temperature 97.4 F L 97.6 F L Temperature Source Temporal Pulse Rate 110 H 68 80 Respiratory Rate 20 H 16 19 H Blood Pressure 188/100 H 148/79 H 139/82 H Blood Pressure Mean 129 102 101 Pulse Ox 98 97 100 Oxygen Delivery Method Room Air <Radames Yoo MD - Last Filed: 02/17/24 18:44> Physical Exam Const Vital Signs: 02/17/24 16:06 02/17/24 17:04 02/17/24 17:31 Temperature 97.4 F L 97.6 F L Temperature Source Temporal Pulse Rate 110 H 68 80 Respiratory Rate 20 H 16 19 H Blood Pressure 188/100 H 148/79 H 139/82 H Blood Pressure Mean 129 102 101 Pulse Ox 98 97 100 Oxygen Delivery Method Room Air MDM <AMIE Waller - Last Filed: 02/17/24 17:09> [facility] MDM Narrative Medical decision making narrative: Differential: Urinary retention, BPH, EARLE, UTI Patient with history of BPH presents with acute urinary retention. He appears comfortable. He was initially hypertensive and tachycardic with otherwise normal vital signs. Bladder scan had greater than 700 cc present and the nurse placed an indwelling Centeno catheter prior to my exam. He looks much more comfortable, has a soft, nontender nondistended abdomen. Around the 1000 cc of clear yellow urine has drained. Labs show mild leukocytosis at 11.4, otherwise normal. Normal electrolytes and renal function. Urinalysis negative for infection. Patient was given instructions for the indwelling Centeno catheter and advised to follow-up with his urologist next week. He will resume Flomax. He was discharged in stable condition. Lab Data Attestation: I reviewed the patient's lab results. Labs: Laboratory Results - last 24 hr 02/17/24 16:21 WBC 11.4 H RBC 5.62 Hgb 16.1 Hct 46.9 MCV 83.5 MCH 28.6 MCHC 34.3 RDW Std Deviation 38.3 RDW Coeff of Peng 12.5 Plt Count 236 MPV 11.1 Immature Gran % (Auto) 0.400 Neut % (Auto) 75.4 H Lymph % (Auto) 17.8 L Fountain % (Auto) 4.9 Eos % (Auto) 1.0 Baso % (Auto) 0.5 Absolute Neuts (auto) 8.6 H Absolute Lymphs (auto) 2.02 Nucleated RBC % 0 Sodium 138 Potassium 3.6 Chloride 106 Carbon Dioxide 22.0 Anion Gap 10 BUN 19 H Creatinine 1.11 Estim Creat Clear Calc 76.90 Est GFR (MDRD) Af Amer 87 Est GFR (MDRD) Non-Af 72 BUN/Creatinine Ratio 17.1 Glucose 102 Calcium 9.6 Urine Color Yellow Urine Clarity Clear Urine pH 6.0 Ur Specific Cornell 1.010 Urine Protein Negative Urine Glucose (UA) Normal Urine Ketones 5 H Urine Occult Blood 10 H Urine Nitrite Negative Urine Bilirubin Negative Urine Urobilinogen Normal Ur Leukocyte Esterase Negative Urine RBC 0 SEEN Urine WBC 0 SEEN Ur Squamous Epith Cells 0 SEEN Urine Bacteria 0 SEEN Urine Mucus 0 SEEN <Radames Yoo MD - Last Filed: 02/17/24 18:44> [facility] Lab Data Labs: Laboratory Results - last 24 hr 02/17/24 16:21 WBC 11.4 H RBC 5.62 Hgb 16.1 Hct 46.9 MCV 83.5 MCH 28.6 MCHC 34.3 RDW Std Deviation 38.3 RDW Coeff of Peng 12.5 Plt Count 236 MPV 11.1 Immature Gran % (Auto) 0.400 Neut % (Auto) 75.4 H Lymph % (Auto) 17.8 L Fountain % (Auto) 4.9 Eos % (Auto) 1.0 Baso % (Auto) 0.5 Absolute Neuts (auto) 8.6 H Absolute Lymphs (auto) 2.02 Nucleated RBC % 0 Sodium 138 Potassium 3.6 Chloride 106 Carbon Dioxide 22.0 Anion Gap 10 BUN 19 H Creatinine 1.11 Estim Creat Clear Calc 76.90 Est GFR (MDRD) Af Amer 87 Est GFR (MDRD) Non-Af 72 BUN/Creatinine Ratio 17.1 Glucose 102 Calcium 9.6 Urine Color Yellow Urine Clarity Clear Urine pH 6.0 Ur Specific Cornell 1.010 Urine Protein Negative Urine Glucose (UA) Normal Urine Ketones 5 H Urine Occult Blood 10 H Urine Nitrite Negative Urine Bilirubin Negative Urine Urobilinogen Normal Ur Leukocyte Esterase Negative Urine RBC 0 SEEN Urine WBC 0 SEEN Ur Squamous Epith Cells 0 SEEN Urine Bacteria 0 SEEN Urine Mucus 0 SEEN Treatment and Re-Evaluation :: Dr. Yoo: I have personally performed a face to face assessment of the patient and have reviewed the LEONARDO Note. I performed a substantive portion of the visit including all aspects of the following. My barnett findings include: History is urinary retention with history of BPH. Did not take tamsulosin today. Exam is afebrile. Vital signs noted. Regular rate and rhythm. Lungs clear to auscultation bilaterally. Abdomen soft and nontender with normoactive bowel sounds after Centeno insertion. Medical Decision Making: Bladder scan with greater than 800 mL. Centeno insertion. Check UA, check CBC and BMP. I reviewed the laboratory work there is no evidence of acute kidney injury or urinary tract infection. I do not feel antibiotics are indicated. Patient will be given a leg bag to follow-up with his urologist at [facility] Return instructions reviewed. Disposition is discharged home in stable condition. Other additions or changes: [None] Discharge Plan Triage Chief Complaint: Complaint ED Midlevel Provider: Candelaria Stratton ED Provider: Radames Yoo Dx/Rx/DC Orders Clinical Impression: Acute urinary retention, Centeno catheter in place, Benign prostatic hyperplasia Instructions: ED Centeno Catheter, Care Prescriptions: No Action lisinopril [Zestril] 5 MG tablet 5 mg PO DAILY escitalopram oxalate 20 mg tablet 10 mg PO DAILY Patient Comments: TAKE 1/2 TABLET BY MOUTH ONCE DAILY tamsulosin 0.4 mg capsule 0.4 mg PO Q24H Patient Comments: Take 1 capsule by mouthMonce daily. Primary Care Provider: Alexa Jones NP Referrals: Eusebio Coates MD [Med Staff - Active Staff] - Alexa Jones NP, [facility]ER-[facility] [Primary Care Provider] - Activity Restrictions/Additional Instructions: Follow-up with urology to have the indwelling Centeno catheter removed and to be reassessed. Print Language: Hebrew Disposition Disposition: Home, Self Care Discharge Date/Time: 02/17/24 17:32
[2024-02-17 16:58] LABS: Anion Gap 10 (5-15); BUN 19 mg/dL (7-18); BUN/Creat Ratio 17.1 RATIO (10-20); Calcium,Total 9.6 mg/dL (8.5-10.1); Chloride 106 mmol/L (98-107); Creatinine, Serum 1.11 mg/dL (0.70-1.30); EST Glomerular Filtration Rate 72 mL/min (>60); Est Glom Filt Rate - Afr Amer 87 mL/min (>60); Glucose 102 mg/dL (74-106); Potassium 3.6 mmol/L (3.5-5.1); Sodium Level 138 mmol/L (136-145)
[2024-02-17 17:04] VITALS: BP 148/79; PULSE 68; RESP 16; O2SAT 97
[2024-02-17 17:31] VITALS: BP 139/82; PULSE 80; RESP 19; TEMP 36.4; O2SAT 100
== END 2024-02-17 17:32 | disposition home or self-care (01) ==
PROVIDERS: Physician Assistant; Emergency Provider Emergency Medicine; PCP Nurse Practitioner Family; Visit Provider Emergency Medicine
DX: N40.1 Benign prostatic hyperplasia with lower urinary tract symptoms (principal); R33.8 Other retention of urine; I10 Essential (primary) hypertension; F17.220 Nicotine dependence, chewing tobacco, uncomplicated
CPT/HCPCS: 80048; 81001; 85025; 99283

== ENCOUNTER 2024-09-25 20:37 | Emergency (ER) | payer BC, SELFPAY ==
[2024-09-25 20:42] VITALS: BP 189/129; PULSE 112; RESP 18; TEMP 36.6; O2SAT 100
[2024-09-25 21:13] VITALS: BMI 27.6
--- NOTE | 2024-09-25 22:20 | EDS_ITS ---
HPI History of Present Illness Chief Complaint: Complaint [facility] Medical History Anxiety Depression Enlarged prostate HTN (hypertension) Home Medications ?Medication ?Instructions ?Recorded ?Last Taken ?Type lisinopril 5 mg tablet (Zestril) 5 mg PO DAILY 01/18/17 06/26/17 05:00 History escitalopram oxalate 20 mg tablet 10 mg PO DAILY 09/01/23 Unknown History tamsulosin 0.4 mg capsule 0.4 mg PO Q24H 09/01/23 Unknown History escitalopram oxalate 10 mg tablet 10 mg PO DAILY 09/25/24 Unknown History Allergy/AdvReac Type Severity Reaction Status Date / Time codeine AdvReac Nausea Verified 09/25/24 20:44 Family History no significant family his Social History household members: family housing: house Smoking Status: Current every day smoker tobacco type: smokeless tobacco EXAM Physical Exam Const Vital Signs: 09/25/24 20:42 Temperature 98 F Temperature Source Oral Pulse Rate 112 H Respiratory Rate 18 Blood Pressure 189/129 H Blood Pressure Mean 149 Pulse Ox 100 Oxygen Delivery Method Room Air Discharge Plan Triage Chief Complaint: Complaint ED Provider: James Nair Dx/Rx/DC Orders Clinical Impression: Acute urinary retention, BPH (benign prostatic hyperplasia) Instructions: ED Centeno Catheter, Care, ED Urinary Retention, Male Prescriptions: No Action lisinopril [Zestril] 5 MG tablet 5 mg PO DAILY escitalopram oxalate 20 mg tablet 10 mg PO DAILY Patient Comments: TAKE 1/2 TABLET BY MOUTH ONCE DAILY tamsulosin 0.4 mg capsule 0.4 mg PO Q24H Patient Comments: Take 1 capsule by mouthMonce daily. escitalopram oxalate 10 mg tablet 10 mg PO DAILY Primary Care Provider: Alexa Jones NP Referrals: Alexa Jones NP, [employer] [Primary Care Provider] - Activity Restrictions/Additional Instructions: Please follow-up with your urologist for repeat evaluation and return to the ER should you have any further concerns or return of retention Print Language: Somali Disposition Disposition: Home, Self Care
--- NOTE | 2024-09-25 22:20 | EX.ED.DYSGE1 ---
HPI History of Present Illness Chief Complaint: Complaint Informant: patient and spouse/S.O. Narrative Narrative: Patient is a 59-year-old male with past medical history of hypertension and BPH. He states he follows with urology and he has had multiple biopsies and MRIs of his prostate and there is no signs of cancer just that it is enlarged. He reports he will occasionally develop urinary retention secondary to this. He states that roughly 4 to 5 hours prior to arrival he noticed that he was developing lower abdominal pain and try to use the restroom but was unable to do so and with concern he would need a Centeno catheter once again he presents for evaluation [facility] Medical History HTN (hypertension) Enlarged prostate Depression Anxiety Home Medications ?Medication ?Instructions ?Recorded ?Last Taken ?Type lisinopril 5 mg tablet (Zestril) 5 mg PO DAILY 01/18/17 06/26/17 05:00 History escitalopram oxalate 20 mg tablet 10 mg PO DAILY 09/01/23 Unknown History tamsulosin 0.4 mg capsule 0.4 mg PO Q24H 09/01/23 Unknown History escitalopram oxalate 10 mg tablet 10 mg PO DAILY 09/25/24 Unknown History Allergy/AdvReac Type Severity Reaction Status Date / Time codeine AdvReac Nausea Verified 09/25/24 20:44 Family History no significant family his Social History household members: family housing: house Smoking Status: Current every day smoker tobacco type: smokeless tobacco ROS ROS ED Constitutional Constitutional ED: Denies chills or fever(s) ENT ENT ED: Denies sore throat Cardiovascular Cardiovascular: Denies chest pain Respiratory/Chest Respiratory/Chest: Denies cough or dyspnea Gastrointestinal Gastrointestinal: Reports abdominal pain; Denies diarrhea, nausea or vomiting Genitourinary Genitourinary ED: Reports dysuria and other Details: Positive urinary retention Musculoskeletal Musculoskeletal: Denies back pain Integumentary Denies rash Neurologic Neurologic: Denies headache(s) Hematologic/Lymphatic Hematologic/Lymphatic: Denies easy bleeding or easy bruising EXAM Physical Exam Const Vital Signs: 09/25/24 20:42 09/25/24 22:30 Temperature 98 F 98.1 F Temperature Source Oral Pulse Rate 112 H 63 Respiratory Rate 18 18 Blood Pressure 189/129 H 159/89 H Blood Pressure Mean 149 112 Pulse Ox 100 94 Oxygen Delivery Method Room Air Positive well nourished and well developed General Appearance ED: well developed; Negative for pallor HEENT HEENT Narrative: Normocephalic atraumatic Eyes PERRL and EOMs intact bilaterally Neck supple Resp normal respiratory effort and clear to auscultation bilaterally Cardio regular rate and regular rhythm GI non-distended; Negative for non-tender or no masses GI Narrative: In the lower midline/suprapubic region there is organomegaly noted and tenderness to palpation consistent with a distended bladder. The remainder of the abdomen is soft and nontender and bowel sounds are normal active No pulsatile mass or fluid wave Auscultation: normoactive bowel sounds Palpation: soft Back/Spine no CVA tenderness Extremity normal to inspection Neuro oriented x3, CN's II-XII intact bilaterally and no sensory deficits noted Sensorium / Orientation: alert Motor Exam: strength 5/5 throughout Psych mental status grossly normal Skin no rashes or lesions noted and no wounds General Skin Exam: Negative for jaundice or pallor MDM MDM MDM Narrative Medical decision making narrative: Patient arrived to the ER hypertensive and slightly tachycardic but was in pain and his history and exam is consistent with acute urinary retention. He reported his only been roughly 4 to 5 hours since his last normal urination and therefore concern for acute kidney injury from obstructive nephropathy is low and I do not feel the need for blood work at this time. Also as this has been a recurrent nature secondary to his BPH and has not had any urinary symptoms my concern for UTI is low and there is no need for urine sample. The patient had a Centeno catheter placed as his history and exam indicate he has acute urinary retention. After placement of the Centeno catheter there was return of clear yellow urine and resolution of the abdominal pain and organomegaly. With resolution of his pain and retention his vital signs improved as well. Therefore this time with resolution of symptoms stabilization of vitals and the fact that this has been a intermittent/recurrent problem for the patient I do not feel there is need for further workup at this time and he can follow-up with his urologist on an outpatient basis History & Record Review Discussion w/independent historian: Patient and Significant other Discharge Plan Triage Chief Complaint: Complaint ED Provider: James Nair Dx/Rx/DC Orders Clinical Impression: Acute urinary retention, BPH (benign prostatic hyperplasia), Hypertension Instructions: ED Centeno Catheter, Care, ED Urinary Retention, Male Prescriptions: No Action lisinopril [Zestril] 5 MG tablet 5 mg PO DAILY escitalopram oxalate 20 mg tablet 10 mg PO DAILY Patient Comments: TAKE 1/2 TABLET BY MOUTH ONCE DAILY tamsulosin 0.4 mg capsule 0.4 mg PO Q24H Patient Comments: Take 1 capsule by mouthMonce daily. escitalopram oxalate 10 mg tablet 10 mg PO DAILY Primary Care Provider: Alexa Jones NP Referrals: Alexa Jones NP, [employer] [Primary Care Provider] - Activity Restrictions/Additional Instructions: Please follow-up with your urologist for repeat evaluation and return to the ER should you have any further concerns or return of retention Print Language: Fijian Disposition Disposition: Home, Self Care Discharge Date/Time: 09/25/24 22:30
[2024-09-25 22:30] VITALS: BP 159/89; PULSE 63; RESP 18; TEMP 36.7; O2SAT 94
== END 2024-09-25 22:30 | disposition home or self-care (01) ==
PROVIDERS: Emergency Provider Emergency Medicine; PCP Nurse Practitioner Family; Referring Provider Emergency Medicine; Visit Provider Emergency Medicine
DX: N40.1 Benign prostatic hyperplasia with lower urinary tract symptoms (principal); R10.30 Lower abdominal pain, unspecified; I10 Essential (primary) hypertension; R33.8 Other retention of urine; F32.A Depression, unspecified; F41.9 Anxiety disorder, unspecified; Z79.899 Other long term (current) drug therapy; F17.220 Nicotine dependence, chewing tobacco, uncomplicated
CPT/HCPCS: 51702; 99283